=== PATIENT | female | born 1945 | race Caucasian/White ===

== ENCOUNTER 2017-02-26 18:32 | Inpatient (IN) | payer MEDICAID ==
[~2017-02-26] VITALS: Ht 162.6 cm; Wt 70.0 kg
[~2017-02-26 18:32] MED LIST: METO-448 PO
[2017-02-26] MEDS ORDERED: DILTIAZEM 25 MG INJ IV ONE (22:00)
[2017-02-26 22:10] LABS: ADD SCAN DIFF NO
[2017-02-26 22:11] LABS: BASOPHILS % 0.5 % (0.0-2.0); EOSINOPHILS # 0.2 10^3/ul (0.0-0.5); EOSINOPHILS % 2.9 % (0.0-7.0); HEMATOCRIT 40.9 % (37.0-47.0); HEMOGLOBIN 13.8 g/dl (12.0-16.0); LYMPHOCYTES # 2.2 10^3/ul (0.8-2.9); LYMPHOCYTES % 33.6 % (15.0-51.0); MEAN CORPUSCULAR HEMOGLOBIN 32.5 pg (29.0-33.0); MEAN CORPUSCULAR HGB CONC 33.7 g/dl (32.0-37.0); MEAN CORPUSCULAR VOLUME 96.2 fl (82.0-101.0); MEAN PLATELET VOLUME 10.2 fl (7.4-10.4); MONOCYTE # 0.8 10^3/ul (0.3-0.9); MONOCYTES % 12.2 % (0.0-11.0); NEUTROPHIL # 3.3 10^3/ul (1.6-7.5); NEUTROPHILS % 50.5 % (39.0-77.0); PLATELET COUNT 229 10^3/UL (140-415); RED BLOOD COUNT 4.25 10^6/ul (4.20-5.40); RED CELL DISTRIBUTION WIDTH 12.7 % (11.5-14.5); WHITE BLOOD COUNT 6.5 10^3/ul (4.8-10.8)
--- NOTE | 2017-02-26 22:15 | RADRPT ---
PROCEDURE: CT Brain without contrast. CLINICAL INDICATION: Dizziness TECHNIQUE: A CT of the brain was performed on a [employer] 64-slice CT scanner utilizing axial imaging from the skull base through the vertex without IV contrast. Multiplanar reformatted images were made. Images were reviewed on a PACS workstation. The CTDIvol is 42.48 mGy and the DLP is 811 .63 mGycm. One of the following 3 dose reduction techniques were used: Automated exposure control; adjustment of the mA and/or kV according to patient size; or use of iterative reconstruction technique. COMPARISON: None FINDINGS: There is no intracranial hemorrhage, mass effect, or midline shift. No extra-axial fluid collection is seen. The ventricles and sulci are age appropriate. Mild diffuse volume loss is present. Multi ple punctate foci of calcifications are present in the bilateral cerebral hemispheres ranging in siz e from 1 mm to 6 mm. These are compatible with prior cysticercosis. Decreased attenuation is prese nt in the bilateral subcortical white matter, centrum semiovale, and periventricular white matter. Mild vascular calcifications of the bilateral intracranial internal carotid arteries are present. The visualized scalp and calvarium are normal. The bilateral orbits are normal. The bilateral para nasal sinuses demonstrate air-fluid levels in the left greater than right maxillary sinuses and the bilateral ethmoid sinuses. The bilateral mastoid air cells and middle ear cavities are clear. IMPRESSION: 1. No evidence of acute intracranial hemorrhage, infarcts, or acute intracranial pathology. 2. 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 3. Mild chronic microvascular ischemic disease and diffuse volume loss. 4. Acute bilateral ethmoid and maxillary sinusitis. RPTAT: HDC .Michelle Hernández MD, MD Date Time Electronically viewed and signed by .Michelle Hernández MD, MD on 02/26/2017 22:14 .C/
[2017-02-26 22:34] LABS: ALANINE AMINOTRANSFERASE 32 IU/L (13-69); ALBUMIN 4.8 g/dl (3.3-4.9); ALKALINE PHOSPHATASE 103 IU/L (42-121); ANION GAP 16 (8-16); ASPARTATE AMINO TRANSFERASE 27 IU/L (15-46); BILIRUBIN,INDIRECT 0.1 mg/dl (0-1.1); BILIRUBIN,TOTAL 0.1 mg/dl (0.2-1.3); BLOOD UREA NITROGEN 20 mg/dl (7-20); CALCIUM 9.5 mg/dl (8.4-10.2); CARBON DIOXIDE 27 mmol/L (21-31); CHLORIDE 104 mmol/L (97-110); GLUCOSE 96 mg/dl (70-220); POTASSIUM 3.9 mmol/L (3.5-5.1); SODIUM 143 mmol/L (135-144); TOTAL PROTEIN 7.8 g/dl (6.1-8.1)
[2017-02-26 22:42] LABS: B-TYPE NATRIURETIC PEPTIDE 1220 PG/ML (0-125)
[2017-02-26 22:48] LABS: TROPONIN-I < 0.012 ng/ml (0.00-0.12)
--- NOTE | 2017-02-26 22:51 | RADRPT ---
PROCEDURE: Chest. CLINICAL INDICATION: Chest pain. TECHNIQUE: Single frontal view of the chest was obtained. COMPARISON: 11/25/2013. FINDINGS: The cardiac silhouette is magnified. The aortic arch is calcified. There are chronic increased int erstitial markings bilaterally. There is no focal consolidation, vascular congestion or pleural eff usion. There is no pneumothorax. IMPRESSION: Bilateral chronic increased interstitial markings without focal consolidation. Aortic atherosclerosis. .Michael Pa MD, Date Time Electronically viewed and signed by .Michael Pa MD, MD on 02/26/2017 22:51 .T/
[2017-02-26] MEDS ORDERED: GUAI-173 PO (22:54)
[2017-02-26] MEDS ORDERED: ALEN70TA30 PO (22:54)
[2017-02-26] MEDS ORDERED: ERGO500037 PO (22:54)
[2017-02-26] MEDS ORDERED: ACETAMINOPHEN 325 MG TAB PO PRN (23:00)
[2017-02-26] MEDS ORDERED: ONDANSETRON 4 MG INJ IV PRN (23:00)
--- NOTE | 2017-02-26 23:00 | ERA ---
ER Documentation Chief Complaint Date/Time DATE: 02/26/17 TIME: 22:57 Chief Complaint COUGH SINCE WEDNESDAY, SOB, WEDNESDAY HAD JULIETA UPPER EXTR NUMBNESS, DIZZINESS,VELASCO HPI This is a 71-year-old female presents to the emergency room for evaluation of cough, shortness of breath and palpitations. The patient states that she does have a history of atrial fibrillation and feels her heart rate is under control. She came to the ER today for evaluation. She is denying any aggravating or relieving factors. She states her cough is dry and denies any fevers associated with this. ROS All systems reviewed and are negative except as per history of present illness. Medications Home Meds Reported Medications Guaifenesin* (Tussin*) 100 Mg/5 Ml Syrup, 100 MG PO Q6 Y for COUGH, ML 02/26/17 Ergocalciferol (Vitamin D2) (VITAMIN D2) 50,000 Unit Capsule, 53361 UNIT PO, CAP 02/26/17 Alendronate Sodium* (Fosamax*) 70 Mg Tablet, 70 MG PO Q7D, #4 TAB 02/26/17 Metoprolol Tartrate* (Lopressor*) 25 Mg Tab, 25 MG PO BID, TAB 09/15/14 Allergies Allergies: Coded Allergies: Penicillins (Unverified Allergy, Unknown, 02/26/17) PMhx/Soc History of Surgery: Yes (C/S) Anesthesia Reaction: No Hx Neurological Disorder: No Hx Respiratory Disorders: No Hx Cardiac Disorders: Yes (AFIB) Hx Psychiatric Problems: No Hx Miscellaneous Medical Probl: No Hx Alcohol Use: No Hx Substance Use: No Hx Tobacco Use: No Smoking Status: Never smoker Physical Exam Vitals Vital Signs Date Time Temp Pulse Resp B/P Pulse Ox O2 Delivery O2 Flow Rate FiO2 02/26/17 19:12 98.0 90 18 157/103 96 Physical Exam INITIAL VITAL SIGNS: Reviewed by me GENERAL: The patient is well developed and appropriate for usual state of health in no apparent distress HEENT: Pupils equal, round, and reactive to light. EOMI. There is no scleral icterus. NECK: C-spine is soft and supple, there is no meningismus. There is no cervical lymphadenopathy. LUNGS: Clear to auscultation bilaterally. There are no rales, wheezes or rhonchi. HEART: Irregularly irregular rhythm, no murmurs, clicks, rubs or gallops. ABDOMEN: Soft, non-tender, non-distended. There are bowel sounds in all four quadrants. No rebound or guarding. EXTREMITIES: There is no peripheral cyanosis or edema. No focal swelling or erythema. NEUROLOGICAL: The patient moves all four extremities with 5/5 strength. Cranial nerves II - XII are intact. Normal gait. Alert and oriented SKIN: There is no apparent rash or petechiae. HEME/LYMPHATIC: There is no evidence of excessive bruising or lymphedema. PSYCHIATRIC: The patient does not appear anxious or depressed. Result Diagram: 02/26/17215402/26/172154 Results 24 hrs Laboratory Tests Test 02/26/17 21:55 White Blood Count 6.510^3/ul Red Blood Count 4.2510^6/ul Hemoglobin 13.8g/dl Hematocrit 40.9% Mean Corpuscular Volume 96.2fl Mean Corpuscular Hemoglobin 32.5pg Mean Corpuscular Hemoglobin Concent 33.7g/dl Red Cell Distribution Width 12.7% Platelet Count 02190^3/UL Mean Platelet Volume 10.2fl Neutrophils % 50.5% Lymphocytes % 33.6% Monocytes % 12.2% Eosinophils % 2.9% Basophils % 0.5% Nucleated Red Blood Cells % 0.0/100WBC Neutrophils # 3.310^3/ul Lymphocytes # 2.210^3/ul Monocytes # 0.810^3/ul Eosinophils # 0.210^3/ul Basophils # 0.010^3/ul Nucleated Red Blood Cells # 0.010^3/ul Sodium Level 143mmol/L Potassium Level 3.9mmol/L Chloride Level 104mmol/L Carbon Dioxide Level 27mmol/L Anion Gap 16 Blood Urea Nitrogen 20mg/dl Creatinine 1.00mg/dl Glucose Level 96mg/dl Calcium Level 9.5mg/dl Total Bilirubin 0.1mg/dl Direct Bilirubin 0.00mg/dl Indirect Bilirubin 0.1mg/dl Aspartate Amino Transf (AST/SGOT) 27IU/L Alanine Aminotransferase (ALT/SGPT) 32IU/L Alkaline Phosphatase 103IU/L Troponin I < 0.012ng/ml B-Type Natriuretic Peptide 1220PG/ML Total Protein 7.8g/dl Albumin 4.8g/dl Globulin 3.00g/dl Albumin/Globulin Ratio 1.60 Current Medications Medications (Trade) Dose Ordered Sig/Yahaira Route PRN Reason Start Time Stop Time Status Last Admin Dose Admin Diltiazem HCl (Cardizem Iv) 10 mg ONCE ONCE IV 02/26/17 22:00 02/26/17 22:01 DC 02/26/17 22:19 Procedures/MDM EKG: Rate/Rhythm: Atrial fibrillation with rapid ventricular response QRS, ST, T-waves: [No changes consistent w/ acute ischemia] Impression: [No evidence of ischemia or arrhythmia] Chest X-ray 1V Interpreted by me: Soft Tissue: No acute abnormalities Bones: No acute abnormalities Mediastinum/Cardiac Silhouette/Lungs: [No acute abnormalities] This 71-year-old female presents to the emergency room for evaluation of palpitations. When I evaluated this patient she had a heart rate of 144 bpm. The patient was in atrial fibrillation with rapid ventricular response. The patient did receive 10 mg of Cardizem IV. Her heart rate is 97 bpm. Lab work is within normal limits at this time. This patient will be placed in for admission to the telemetry floor under the care of Dr. Miranda. Cardiac Critical Care: Excluding all billable procedures Time: 35 minutes Treatments/Evaluations: Close monitoring for dangerous arrhythmia and cardiovascular collapse, while treating with advance cardiac medications and techniques. Departure Diagnosis: Primary Impression: Atrial fibrillation with RVR Condition: JESSICA Ruffin DO Feb 26, 2017 23:00
[2017-02-27] VITALS (14 sets, daily range): BP systolic 83–128; BP diastolic 41–88; PULSE 67–189; RESP 17–20; Ht 162.6 cm; Wt 70.0 kg
[2017-02-27] MEDS ORDERED: ACETAMINOPHEN 325 MG TAB PO PRN (01:00)
[2017-02-27] MEDS ORDERED: NACL 0.9% 3 ML SYG IV SCH (01:00)
[2017-02-27] MEDS ORDERED: ONDANSETRON 4 MG INJ IV PRN (01:00)
[2017-02-27] MEDS ORDERED: LORAZEPAM 2 MG INJ IV PRN (01:00)
[2017-02-27] MEDS ORDERED: DILTIAZEM 25 MG INJ IV ONE ×3 (02:00→05:00)
[2017-02-27] MEDS: SOD CHLORIDE 0.9% 1,000 ML IV SCH (02:44)
--- NOTE | 2017-02-27 03:22 | HP ---
Date/Time of Note Date/Time of Note DATE: 02/27/17 TIME: 03:06 Assessment/Plan VTE Prophylaxis VTE Prophylaxis Intervention: LMWH Lines/Catheters [facility] Urinary Cath still in place: No Assessment/Plan Chief Complaint/Hosp Course This is a 71 year female being admitted to the telemetry floor for: #1 Atrial fibrillation with RVR: While in the ED patient did have an elevated heart rate in the 140s she was given Cardizem 1. Patient was then given another Cardizem 1 upon my examination as her rate was rapid. Will obtain a TSH. And her magnesium. We will also check an echocardiogram as there are no echocardiograms within the last 6 months on record. Will consult cardiology. We will continue beta-juhi. Patient at this time currently has a chads vasc score: 2. Patient states that she has not been on any anticoagulation secondary to her varicose veins. Will defer further anticoagulation recommendations to cardiology. #2 elevated BNP: Patient has a BNP level approximately 1200. She does not appear to be in any overt heart failure, volume overload state. This could be secondary to her A. fib. Will consult cardiology. #3 headache: Patient stated that she did feel lightheaded pressure headache over the last day or so. CT of the head was done which was negative for any acute intracranial pathology. Patient states that her headache has now resolved. #4 cough. This likely could be viral in nature. Patient CT of the head did show acute sinusitis. However at the current time as patient does not have a fever and her cough is only been 5 days and non productive we will continue to monitor this. If symptoms worsen or the persist patient may require antibiotics per #5 osteoporosis: Continue home medications. #6 DVT and GI prophylaxis: Lovenox, Protonix Problems: HPI/ROS Admit Date/Time Admit Date/Time Feb 26, 2017 at 22:57 Hx of Present Illness Chief complaint: Cough 5 days, shortness of breath 2 days palpitation This is a 71-year-old female presents to the emergency room for evaluation of cough, shortness of breath and palpitations. The patient states that she does have a history of atrial fibrillation and feels her heart rate is under control. She came to the ER today for evaluation. She is denying any aggravating or relieving factors. She states her cough is dry and denies any fevers associated with this. She does state that her has been sick at home and he actually was being treated for pneumonia. She denies any chills or pleuritic pain. Of note on examination by the ED physician patient's heart rate was noted to be irregularly irregular at 140 bpm she was given Cardizem IV 1. This subsequently controlled her heart rate. Upon my examination patient's heart rate was elevated as well around the 120s-140s and was an irregularly irregular rhythm. She was given another Cardizem IV 10. Allergies: Penicillins Medications: See MELINDA AGUILERA Const: As per HPI Eyes : No pain discharge or redness or change in visual acuity ENT: No pain, sore throat, congestion, congestion, dysphagia or discharge Respiratory: As per HPI Cardiovascular: As per HPI GI : no change in appetite, abdominal pain, nausea, vomiting, diarrhea, constipation, or change in the color his stool Genitourinary: No dysuria, hematuria, flank pain , discharge or CVA tenderness Musculoskeletal: No joint pain, back pain, neck pain, restricted range of motion in neck or joints Skin: No rash, bruising or hives Neuro: No headache, dizziness, syncope, seizure, focal weakness Endocrine: No polyuria, polydipsia, temperature intolerance Psych: No hallucination, depression, anxiety or suicidal ideation PMH/Family/Social Past Medical History A. fib, osteoporosis Past Surgical History 1 Family History Significant Family History: lung disease Social History Alcohol Use: none Smoking Status: Never smoker Drug Use: none Exam/Review of Systems Vital Signs Vitals Vital Signs Date Time Temp Pulse Resp B/P Pulse Ox O2 Delivery O2 Flow Rate FiO2 02/27/17 02:37 79 02/27/17 02:10 99.0 20 114/70 97 Room Air Exam Exam General: Patient is well-developed well-nourished The patient is alert oriented -3 lying comfortably in bed. HEENT: Atraumatic, normocephalic. The pupils are equal, round and reactive. Extraocular motor are intact Neck: Supple with full range of motion. No rigidity or meningismus Chest: Nontender Lungs: Clear to auscultation bilaterally no crackles rales or wheezing Heart: Normal S1-S2, Regular rhythm and rate. No murmur, S3, or S4 Abdomen: Soft , nontender, nondistended , bowel sounds are present. No guarding no rebound tenderness , No masses or organomegaly. Extremities: Normal to inspection, no edema no cyanosis Neurologic: Normal mental status, speech normal, cranial nerves II through XII are intact, motor and sensory are intact, no focal weakness Additional Comments Telemetry: Patient A. fib with RVR. PROCEDURE: CT Brain without contrast. CLINICAL INDICATION: Dizziness TECHNIQUE: A CT of the brain was performed on a GE [employer] 64-slice CT scanner utilizing axial imaging from the skull base through the vertex without IV contrast. Multiplanar reformatted images were made. Images were reviewed on a PACS workstation. The CTDIvol is 42.48 mGy and the DLP is 811.63 mGycm. One of the following 3 dose reduction techniques were used: Automated exposure control; adjustment of the mA and/or kV according to patient size; or use of iterative reconstruction technique. COMPARISON: None FINDINGS: There is no intracranial hemorrhage, mass effect, or midline shift. No extra- axial fluid collection is seen. The ventricles and sulci are age appropriate. Mild diffuse volume loss is present. Multiple punctate foci of calcifications are present in the bilateral cerebral hemispheres ranging in size from 1 mm to 6 mm. These are compatible with prior cysticercosis. Decreased attenuation is present in the bilateral subcortical white matter, centrum semiovale, and periventricular white matter. Mild vascular calcifications of the bilateral intracranial internal carotid arteries are present. The visualized scalp and calvarium are normal. The bilateral orbits are normal. The bilateral paranasal sinuses demonstrate air-fluid levels in the left greater than right maxillary sinuses and the bilateral ethmoid sinuses. The bilateral mastoid air cells and middle ear cavities are clear. IMPRESSION: 1. No evidence of acute intracranial hemorrhage, infarcts, or acute intracranial pathology. 2. 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 3. Mild chronic microvascular ischemic disease and diffuse volume loss. 4. Acute bilateral ethmoid and maxillary sinusitis. RPTAT: HDC .Michelle Hernández MD, Date Time Electronically viewed and signed by .Michelle Hernández MD, on 02/26/2017 22: 14 PROCEDURE: Chest. CLINICAL INDICATION: Chest pain. TECHNIQUE: Single frontal view of the chest was obtained. COMPARISON: 11/25/2013. FINDINGS: The cardiac silhouette is magnified. The aortic arch is calcified. There are chronic increased interstitial markings bilaterally. There is no focal consolidation, vascular congestion or pleural effusion. There is no pneumothorax. IMPRESSION: Bilateral chronic increased interstitial markings without focal consolidation. Aortic atherosclerosis. .Michael Pa MD, MD Date Time Electronically viewed and signed by .Michael Pa MD, on 02/26/2017 22:51 Labs Result Diagram: 02/26/17215402/26/172154 Medications Medications Current Medications Sodium Chloride (NS) 1,000 ml @ 40 mls/hr Q24H IV Last administered on t 02:44; Admin Dose 40 MLS/HR; Start 02/27/17 at 00:58 Lorazepam (Ativan) 0.5 mg Q6H PRN IV ANXIETY; Start 02/27/17 at 01:00 Ondansetron HCl (Zofran Inj) 4 mg Q6H PRN IV NAUSEA AND/OR VOMITING; Start 02/27 at 01:00 Acetaminophen (Tylenol Tab) 650 mg Q6H PRN PO PAIN LEVEL 1-3 OR FEVER; Start at 01:00 Pantoprazole (Protonix Iv) 40 mg DAILY@06 IV ; Start 02/27/17 at 06:00 JAYSON LAND Feb 27, 2017 03:17
[2017-02-27] MEDS ORDERED: ENOXAPARIN 40 MG/0.4 ML SYG SC SCH ×2 (05:00→09:00)
[2017-02-27] MEDS: PANTOPRAZOLE 40 MG INJ IV SCH (05:09)
[2017-02-27 07:33] LABS: ADD SCAN DIFF NO
[2017-02-27 07:37] LABS: BASOPHILS % 0.5 % (0.0-2.0); EOSINOPHILS # 0.1 10^3/ul (0.0-0.5); EOSINOPHILS % 2.5 % (0.0-7.0); HEMATOCRIT 38.9 % (37.0-47.0); HEMOGLOBIN 13.1 g/dl (12.0-16.0); LYMPHOCYTES # 1.9 10^3/ul (0.8-2.9); LYMPHOCYTES % 34.8 % (15.0-51.0); MEAN CORPUSCULAR HGB CONC 33.7 g/dl (32.0-37.0); MEAN CORPUSCULAR VOLUME 94.9 fl (82.0-101.0); MONOCYTE # 0.6 10^3/ul (0.3-0.9); MONOCYTES % 11.2 % (0.0-11.0); NEUTROPHIL # 2.8 10^3/ul (1.6-7.5); NEUTROPHILS % 50.8 % (39.0-77.0); PLATELET COUNT 207 10^3/UL (140-415); RED CELL DISTRIBUTION WIDTH 12.9 % (11.5-14.5); WHITE BLOOD COUNT 5.5 10^3/ul (4.8-10.8)
[2017-02-27 07:56] LABS: CREATINE KINASE 62 IU/L (23-200)
[2017-02-27 07:59] LABS: ALBUMIN/GLOBULIN RATIO 1.73; BILIRUBIN,INDIRECT 0.4 mg/dl (0-1.1); BILIRUBIN,TOTAL 0.4 mg/dl (0.2-1.3); CALCIUM 8.9 mg/dl (8.4-10.2); CHOL/HDL RATIO 2.9 RATIO; CREATININE 0.61 mg/dl (0.44-1.00); POTASSIUM 3.9 mmol/L (3.5-5.1); TOTAL PROTEIN 6.3 g/dl (6.1-8.1)
[2017-02-27 08:28] LABS: THYROID STIMULATING HORMONE 3.69 MIU/L (0.465-4.680)
[2017-02-27 08:29] LABS: TROPONIN-I < 0.012 ng/ml (0.00-0.12)
[2017-02-27] MEDS ORDERED: METOPROLOL 25 MG TAB PO SCH (09:00)
--- NOTE | 2017-02-27 09:24 | RADRPT ---
Echocardiogram Report Patient Name: DENISE ENGLAND Gender: Female Date: 1945 Study Date: 27-Feb-2017 Hydroblaster: [facility] Location: [id number] Ref. Physician: JAYSON LAND Quality: Adequate Procedures: Transthoracic echocardiogram with complete 2D, M-Mode, and doppler examination. Indications: afib w/ rvr, elevated troponin. 2D/M Mode Doppler Measurement Value Normal Ranges Measurement Value Normal Ranges LVIDd 2D 4.5 3.5 - 5.6 cm AV Peak Karthik 1.5 m/sec LVIDs 2D 3.2 2.1 - 4.1 cm AV Peak PG 9.1 mmHg LVPWd 2D 1.1 0.6 - 1.1 cm AI Peak PG 69.4 mmHg IVSd 2D 1.1 0.6 - 1.1 cm AI Peak Karthik 4.2 m/sec AoR Diam 2D 2.9 2.0 - 3.7 cm AI PHT 583.9 msec EDV 2D 91.6 cm3 LVOT Peak Karthik 0.8 m/sec ESV 2D 34.2 cm3 LVOT Peak PG 2.7 mmHg LA Dimen 2D 3.5 2.3 - 4.0 cm MV E Peak Karthik 0.7 m/sec MV A Peak Karthik 0.6 m/sec MV E/A 1.1 MV Decel Time 208 msec MV Decel [place] 3 MV E/A 1.1 TR Peak Karthik 2.3 m/sec TR Peak PG 21.5 mmHg RVSP 25.0 mmHg Findings Left Ventricle: Normal left ventricular systolic function. Normal left ventricular cavity size. Left ventricular wall thickness upper limits of normal. Ejection fraction is visually estimated at 65 %. Tissue Doppler/Mitral Doppler indices are consistent with impaired relaxation (Stage I diastolic dysfunction). Right Ventricle: Normal right ventricular size. Normal right ventricular systolic function. Left Atrium: There is mild enlargement of left atrium. Right Atrium: The right atrium is normal in size. Mitral Valve: Mild mitral leaflet calcification. Trace mitral regurgitation. Aortic Valve: Normal appearance of the aortic valve. Mild aortic valve regurgitation. Tricuspid Valve: Normal appearance of the tricuspid valve. Estimated peak PA systolic pressure 25 mmHg. There is trace to mild tricuspid regurgitation. Pulmonic Valve: Pulmonic valve not well visualized. No evidence of pulmonic regurgitation. Pericardium: Normal pericardium with no significant pericardial effusion. Aorta: Normal aortic root. IVC: Normal size and normal respiratory collapse consistent with normal right atrial pressure. Conclusions Normal left ventricular systolic function. Normal left ventricular cavity size. Left ventricular wall thickness upper limits of normal. Ejection fraction is visually estimated at 65 %. Tissue Doppler/Mitral Doppler indices are consistent with impaired relaxation (Stage I diastolic dysfunction). Mild aortic valve regurgitation. Estimated peak PA systolic pressure 25 mmHg based on RA pressure of 3 mmHg. Electronically Signed By: Barron Steen 27-Feb-2017 09:23:48 -0700 Patient Name: DENISE ENGLAND Study Date: 27-Feb-2017 [id number]
[2017-02-27] MEDS ORDERED: FUROSEMIDE 20 MG INJ IV ONE (09:30)
--- NOTE | 2017-02-27 09:36 | CONS ---
Date/Time of Note Date/Time of Note DATE: 02/27/17 TIME: 09:27 Assessment/Plan Assessment/Plan Chief Complaint/Hosp Course Paroxysmal atrial fibrillation with RVR: Back in sinus now. Pt has not been on anticoagulation due to varicose vein bleeding on ASA. After explaining the risk of stroke (CHADSVASC 2), the pt is agreeable to retrying. Acute diastolic heart failure: EF preserved by echo, no valvular disease. Very mild, likely from RVR episode. -start Eliquis 5mg BID -switch MTP to diltiazem 120mg daily -lasix 20mg IV x1, do not anticipate nursing home diuretics Problems: Consultation Date/Type/Reason Admit Date/Time Feb 26, 2017 at 22:57 Date of Consultation: Feb 27, 2017 Type of Consultation: Cardiology Reason for Consultation Afib with RVR Referring Provider: JAYSON LAND of Present Illness 71 yo F with a h/o paroxysmal afib not on anticoagulation, who presented with palpitations and SOB and was found to have afib with RVR. The pt notes that over the past few days she has been having on and off palpitations but her symptoms started and persisted since am of admission yesterday. She takes MTP for her afib. She has not been on anticoagulation as apparently when she took ASA her varicose veins in her legs bled and she had ulcers that did not heal for months. Currently she is back in sinus and denies any SOB/palpitations. She has a pain under her left breast which is worse with inspiration. No substernal pain. 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 per HPI Past Medical History per HPI Social History Alcohol Use: none Smoking Status: Never smoker Drug Use: none Exam/Review of Systems Vital Signs Vitals Vital Signs Date Time Temp Pulse Resp B/P Pulse Ox O2 Delivery O2 Flow Rate FiO2 02/27/17 08:04 73 02/27/17 07:16 99.1 18 101/88 95 02/27/17 02:10 Room Air Intake and Output 02/26/17 02/26/17 02/27/17 15:00 23:00 07:00 Intake Total 40 ml Balance 40 ml Exam Constitutional: alert, oriented Psych: no complaints Head: atraumatic, normocephalic Neck: jvd (7cm) Respiratory: crackles/rales, No clear to auscultation (right base crackles ) Cardiovascular: regular rate and rhythm, No edema, No systolic murmur Gastrointestinal: non-tender, soft Extremities: normal pulses, other (varicose veins ) Neurological: nl mental status, nl speech Skin: No rash or lesions Results EKG: afib with RVR, nonspecific T changes Result Diagram: 02/27/17 0630 02/27/17 0630 Results 24 hrs Laboratory Tests Test 02/26/17 21:55 02/27/17 06:30 White Blood Count 6.5 5.5 Red Blood Count 4.25 4.10 L Hemoglobin 13.8 13.1 Hematocrit 40.9 38.9 Mean Corpuscular Volume 96.2 94.9 Mean Corpuscular Hemoglobin 32.5 32.0 Mean Corpuscular Hemoglobin Concent 33.7 33.7 Red Cell Distribution Width 12.7 12.9 Platelet Count 229 207 Mean Platelet Volume 10.2 10.0 Neutrophils % 50.5 50.8 Lymphocytes % 33.6 34.8 Monocytes % 12.2 H 11.2 H Eosinophils % 2.9 2.5 Basophils % 0.5 0.5 Nucleated Red Blood Cells % 0.0 0.0 Neutrophils # 3.3 2.8 Lymphocytes # 2.2 1.9 Monocytes # 0.8 0.6 Eosinophils # 0.2 0.1 Basophils # 0.0 0.0 Nucleated Red Blood Cells # 0.0 0.0 Sodium Level 143 144 Potassium Level 3.9 3.9 Chloride Level 104 109 Carbon Dioxide Level 27 25 Anion Gap 16 14 Blood Urea Nitrogen 20 15 Creatinine 1.00 0.61 Glucose Level 96 91 Calcium Level 9.5 8.9 Total Bilirubin 0.1 L 0.4 Direct Bilirubin 0.00 0.00 Indirect Bilirubin 0.1 0.4 Aspartate Amino Transf (AST/SGOT) 27 21 Alanine Aminotransferase (ALT/SGPT) 32 30 Alkaline Phosphatase 103 86 Troponin I < 0.012 < 0.012 B-Type Natriuretic Peptide 1220 H Total Protein 7.8 6.3 # Albumin 4.8 4.0 Globulin 3.00 2.30 Albumin/Globulin Ratio 1.60 1.73 Hemoglobin A1c 5.6 Magnesium Level 2.0 Creatine Kinase 62 Creatine Kinase Index 1.3 Creatinine Kinase MB (Mass) 0.80 Triglycerides Level 58 Cholesterol Level 139 LDL Cholesterol, Calculated 80 HDL Cholesterol 47 Cholesterol/HDL Ratio 2.9 Thyroid Stimulating Hormone (TSH) 3.690 Medications Medications Current Medications Sodium Chloride (NS) 1,000 ml @ 40 mls/hr Q24H IV Last administered on 02:44; Admin Dose 40 MLS/HR; Start 02/27/17 at 00:58 Lorazepam (Ativan) 0.5 mg Q6H PRN IV ANXIETY; Start 02/27/17 at 01:00 Ondansetron HCl (Zofran Inj) 4 mg Q6H PRN IV NAUSEA AND/OR VOMITING; Start 02/27 at 01:00 Acetaminophen (Tylenol Tab) 650 mg Q6H PRN PO PAIN LEVEL 1-3 OR FEVER; Start at 01:00 Pantoprazole (Protonix Iv) 40 mg DAILY@06 IV Last administered on 02/27/17 05: 09; Admin Dose 40 MG; Start 02/27/17 at 06:00 Alendronate Sodium (Fosamax) 70 mg Fr@0730 PO ; Start 03/05/17 at 07:30 Enoxaparin Sodium (Lovenox) 40 mg DAILY SC Last administered on 02/27/17 04:55 ; Admin Dose 40 MG; Start 02/27/17 at 05:00 Diltiazem HCl (Cardizem Cd) 120 mg DAILY PO ; Start 02/27/17 at 09:00 NEVAEH SAGASTUME Feb 27, 2017 09:36
[2017-02-27] MEDS: DILTIAZEM (CD) 120 MG CAP PO SCH (09:39)
[2017-02-27 13:28] LABS: CREATINE KINASE 59 IU/L (23-200)
[2017-02-27 13:53] LABS: TROPONIN-I < 0.012 ng/ml (0.00-0.12)
[2017-02-27] MEDS: APIXABAN 5 MG TABLET PO SCH (20:52)
[2017-02-28] VITALS (7 sets, daily range): BP systolic 121–132; BP diastolic 59–62; PULSE 62–70; RESP 17–18
[2017-02-28] MEDS: SOD CHLORIDE 0.9% 1,000 ML IV SCH ×2 (00:58→05:44)
[2017-02-28] MEDS: PANTOPRAZOLE 40 MG INJ IV SCH (05:45)
[2017-02-28] MEDS: DILTIAZEM (CD) 120 MG CAP PO SCH (08:40)
[2017-02-28] MEDS: APIXABAN 5 MG TABLET PO SCH (08:42)
[2017-02-28] MEDS ORDERED: AMOX1TAB10 PO (09:31)
--- NOTE | 2017-02-28 09:54 | CONS ---
Date/Time of Note Date/Time of Note DATE: 02/28/17 TIME: 09:53 Assessment/Plan Assessment/Plan Chief Complaint/Hosp Course Paroxysmal atrial fibrillation with RVR: Back in sinus now. Pt has not been on anticoagulation due to varicose vein bleeding on ASA. After explaining the risk of stroke (CHADSVASC 2), the pt is agreeable to retrying. Started on Eliquis Acute diastolic heart failure: EF preserved by echo, no valvular disease. Very mild, likely from RVR episode. Now resolved . -ok for d/c -Eliquis 5mg BID -diltiazem 120mg daily f/u outpt cardiology Problems: Consultation Date/Type/Reason Admit Date/Time Feb 26, 2017 at 22:57 Initial Consult Date 02/27/17 Type of Consultation: Cardiology Referring Provider: JAYSON LAND 24 HR Interval Summary Free Text/Dictation No further afib. Feels well. Would like to go home. Exam/Review of Systems Vital Signs Vitals Vital Signs Date Time Temp Pulse Resp B/P Pulse Ox O2 Delivery O2 Flow Rate FiO2 02/28/17 08:00 66 02/28/17 07:48 98.1 17 132/61 94 02/27/17 02:10 Room Air Intake and Output 02/27/17 02/27/17 02/28/17 15:00 23:00 07:00 Intake Total 120 ml 270 ml Balance 120 ml 270 ml Exam Constitutional: alert, oriented Neck: No jvd Respiratory: clear to auscultation Cardiovascular: regular rate and rhythm, No edema Gastrointestinal: soft, No non-tender Neurological: nl mental status, nl speech Results Result Diagram: 02/27/17 0630 02/27/17 0630 Results 24 hrs Laboratory Tests Test 02/27/17 12:20 Creatine Kinase 59 Creatine Kinase Index 0.8 Creatinine Kinase MB (Mass) 0.50 Troponin I < 0.012 Medications Medications Current Medications Sodium Chloride (NS) 1,000 ml @ 40 mls/hr Q24H IV Last administered on t 05:44; Admin Dose 40 MLS/HR; Start 02/27/17 at 00:58 Lorazepam (Ativan) 0.5 mg Q6H PRN IV ANXIETY; Start 02/27/17 at 01:00 Ondansetron HCl (Zofran Inj) 4 mg Q6H PRN IV NAUSEA AND/OR VOMITING; Start 02/27 at 01:00 Acetaminophen (Tylenol Tab) 650 mg Q6H PRN PO PAIN LEVEL 1-3 OR FEVER Last administered on 02/27/17 09:42; Admin Dose 650 MG; Start 02/27/17 at 01:00 Pantoprazole (Protonix Iv) 40 mg DAILY@06 IV Last administered on 02/28/17 05: 45; Admin Dose 40 MG; Start 02/27/17 at 06:00 Alendronate Sodium (Fosamax) 70 mg Fr@0730 PO ; Start 03/05/17 at 07:30 Diltiazem HCl (Cardizem Cd) 120 mg DAILY PO Last administered on 02/28/17 08:40 ; Admin Dose 120 MG; Start 02/27/17 at 09:00 Apixaban (Eliquis) 5 mg BID PO Last administered on 02/28/17 08:42; Admin Dose 5 MG; Start 02/27/17 at 21:00 NEVAEH SAGASTUME Feb 28, 2017 09:54
[2017-02-28] MEDS ORDERED: APIX5TAB PO (10:19)
[2017-02-28] MEDS ORDERED: DILT120C77 PO (10:19)
--- NOTE | 2017-02-28 10:20 | PDOCDIS ---
Discharge Instructions DIAGNOSIS Discharge Diagnosis: Atrial Fibrillation CONDITION Patient Condition: Stable HOME CARE INSTRUCTIONS: Diet Instructions: Low Fat /Cholesterol ACTIVITY: Activity Restrictions: Slowly Increase Activity Rest between Activity FOLLOW UP/APPOINTMENTS Appointments Followup with your primary doctor within the next 1-2 weeks. If you don't have one please let someone know, we can give you resources that may help you pick one. You may call Dr Minesh Bullard's office. he's accepting new patients Name, Degree: Minesh Bullard MD Specialty: Internal Medicine Comments: Office Address: [address] [place] [address] [place] [address] Office Office You may also call your insurance company to assign one to you. Review your medication list with your nurse before leaving and if you need new prescriptions please let your nurse know. I may have made changes to your home medications or given you new prescriptions , please let your primary doctor know as well. Stay compliant with your medications and report any side effects to your PCP or pharmacist. Return to the ER if you have any concerns and cannot reach your doctors or call your insurance company, they usually have a nurse that can help you. AIDAN OSORIO Feb 28, 2017 10:20
[2017-02-28] MEDS ORDERED: LEVO500T10 PO (10:55)
[2017-02-28] MEDS ORDERED: LACT1CAP57 PO (10:55)
--- NOTE | 2017-02-28 11:55 | DS ---
Date/Time of Note Date/Time of Note DATE: 02/28/17 TIME: 11:48 Discharge Summary Admission/Discharge Info Admit Date/Time Feb 26, 2017 at 22:57 Discharge Date/Time 02/28/17. . Final Diagnosis 1. Paroxysmal atrial fibrillation with rapid ventricular ventricular response now back in sinus with good rate control 2. Acute diastolic failure: Mild, compensated 3. Acute sinusitis . Patient Condition: Stable Consults Cardiology: Celsa . Hx of Present Illness Chief complaint: Cough 5 days, shortness of breath 2 days palpitation This is a 71-year-old female presents to the emergency room for evaluation of cough, shortness of breath and palpitations. The patient states that she does have a history of atrial fibrillation and feels her heart rate is under control. She came to the ER today for evaluation. She is denying any aggravating or relieving factors. She states her cough is dry and denies any fevers associated with this. She does state that her has been sick at home and he actually was being treated for pneumonia. She denies any chills or pleuritic pain. Of note on examination by the ED physician patient's heart rate was noted to be irregularly irregular at 140 bpm she was given Cardizem IV 1. This subsequently controlled her heart rate. Upon my examination patient's heart rate was elevated as well around the 120s-140s and was an irregularly irregular rhythm. She was given another Cardizem IV 10. Allergies: Penicillins Medications: See MAR . Hospital Course This 71-year-old female had presented with shortness of breath and cough as well as palpitations for the last 5 days and was admitted for atrial fibrillation with rapid ventricular response as well as a an acute diastolic heart failure. She was started on intravenous calcium channel blockers and eventually switched to oral calcium channel blockers with subsequent excellent rate control. As per protocol she was also started on anticoagulation therapy which she had been refusing in the past due to varicose veins but finally consented to and has been started on Eliquis 5 mg twice a day. Cardiology followed her while in-house and did not think she needed to be discharged on oral diuretics. 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 Because she was symptomatic she was given a 10 day course of Levaquin for her sinusitis as she was allergic to to penicillin and she is advised to follow-up with her primary care physician if symptoms persist or recurr. Noted that she was also ruled out for an acute coronary syndrome and she also underwent a 2D echocardiogram February 27, 2017 that showed normal left ventricular systolic function, EF of 65%, and estimated peak PA systolic pressure of 25. The patient has been evaluated in detail today, she is ambulant, her physical examination is benign, vital signs are stable and she has been cleared by both myself as well as the nascar driver for discharge and outpatient follow-up in stable condition. . Home Meds Active Scripts Lactobacillus Rhamnosus* (Culturelle*) 1 Each Cap.sprink, 1 CAP PO BID for 10 Days, CAP [facility] 02/28/17 Levofloxacin* (Levofloxacin*) 500 Mg Tablet, 500 MG PO DAILY for 10 Days, TAB [facility]. 02/28/17 Diltiazem Hcl* (Cardizem CD*) 120 Mg Cap.sr.24h, 120 MG PO DAILY for 30 Days, 2 Refills Prov:JOROSEMARYO M. 02/28/17 Apixaban* (Eliquis*) 5 Mg Tablet, 5 MG PO BID for 30 Days, TAB 2 Refills [facility]. 02/28/17 Reported Medications Guaifenesin* (Tussin*) 100 Mg/5 Ml Syrup, 100 MG PO Q6 Y for COUGH, ML 02/26/17 Ergocalciferol (Vitamin D2) (VITAMIN D2) 50,000 Unit Capsule, 15428 UNIT PO, CAP 02/26/17 Alendronate Sodium* (Fosamax*) 70 Mg Tablet, 70 MG PO Q7D, #4 TAB 02/26/17 Discontinued Reported Medications Metoprolol Tartrate* (Lopressor*) 25 Mg Tab, 25 MG PO BID, TAB 09/15/14 Follow-up Plan Patient is to follow-up with her primary care physician within 1-2 weeks. . Primary Care Provider Not On Staff Doctor Time spent on discharge: > 30 minutes Pending Labs Laboratory Tests Test 02/27/17 12:20 Creatine Kinase 59IU/L (23-200) Creatine Kinase Index 0.8 Creatinine Kinase MB (Mass) 0.50ng/ml (0.0-2.4) Troponin I < 0.012ng/ml (0.00-0.12) AIDAN OSORIO. Feb 28, 2017 11:55
[2017-03-05] MEDS ORDERED: ALENDRONATE 70 MG TAB PO SCH (07:30)
== END 2017-02-28 12:08 | disposition home or self-care (01) | DRG 293 ==
LOC: E/R 18:32 → MS4 22:57
PROVIDERS: ADMIT Family Medicine; ATTEND Family Medicine
DX: I50.31 Acute diastolic (congestive) heart failure (principal); I48.0 Paroxysmal atrial fibrillation; J01.90 Acute sinusitis, unspecified; R51 Headache; M81.0 Age-related osteoporosis without current pathological fracture; R05 Cough
CPT/HCPCS: 36415; 70450; 71010; 80053; 80061; 82550; 82553; 83036; 83735; 83880; 84443; 84484; 85025; 93005; 93306; 96374; 96376; J1940; C9113; J1650; J7030

== ENCOUNTER 2017-12-12 14:09 | Emergency (ER) | END 2017-12-12 16:57 | disposition home or self-care (01) ==

== ENCOUNTER 2018-03-14 09:34 | Inpatient (IN) | END 2018-03-15 12:55 | disposition home or self-care (01) | DRG 440 ==

== ENCOUNTER 2018-06-27 15:49 | Emergency (ER) | END 2018-06-27 22:10 | disposition home or self-care (01) ==

== ENCOUNTER 2018-11-14 20:12 | Observation (INO) | payer MEDICAID ==
[~2018-11-14] VITALS: Ht 157.5 cm; Wt 66.5 kg
[~2018-11-14 20:12] MED LIST changes: +CLOP75TA27 PO; +DILT120C62 PO; +ERGO500013 PO; -METO-448 PO
[2018-11-15] MEDS ORDERED: OMEG1CAP90 PO (02:36)
[2018-11-15] MEDS ORDERED: UBID50TA PO (02:36)
[2018-11-15] MEDS ORDERED: CYAN100T PO (02:36)
[2018-11-15] MEDS ORDERED: DEXTROSE 5%-0.45% NACL 1,000 ML IV SCH (03:58)
[2018-11-15] MEDS ORDERED: DOCUSATE SODIUM 100 MG CAP PO PRN (04:00)
[2018-11-15] MEDS ORDERED: ONDANSETRON 4 MG INJ IV PRN (04:00)
[2018-11-15] MEDS ORDERED: NITROGLYCERIN (SL) 0.4 MG TAB SL PRN (04:00)
[2018-11-15] MEDS ORDERED: HYDROCODONE/APAP (5/325) TAB PO PRN (04:00)
[2018-11-15] MEDS ORDERED: ACETAMINOPHEN 325 MG TAB PO PRN (04:00)
[2018-11-15] MEDS ORDERED: MAGNESIUM HYDROXIDE 30ML CUP PO PRN (04:00)
[2018-11-15] MEDS ORDERED: morphine 2 MG INJ IV PRN (04:00)
[2018-11-15] MEDS ORDERED: NACL 0.9% 3 ML SYG IV SCH (04:00)
--- NOTE | 2018-11-15 04:48 | HP ---
Date/Time of Note Date/Time of Note DATE: 11/15/18 TIME: 04:38 Assessment/Plan VTE Prophylaxis SCD applied (from Nsg): Yes Pharmacological prophylaxis: other Lines/Catheters IV Catheter Type (from Nrsg): Saline Lock Assessment/Plan Assessment/Plan 1. Acute chest pain, rule out ACS - atypical in nature - Trop negative x1 and will trend - EKG negative for acute ST changes - ECHO ordered - Nitro, O2, and pain control as needed - will check A1c and TSH - Consider cardiology consultation if indicated 2. h/o atrial fibrillation - in sinus rhythm - continue Cardizem 3. Varicose veins - stable 4. Disposition - Admit to telemetry for ACS workup Result Diagram: 11/15/18 0212 11/15/18 0212 Results 24hrs Laboratory Tests Test 11/15/18 02:12 White Blood Count 4.1 L Red Blood Count 3.88 L Hemoglobin 12.7 Hematocrit 37.8 Mean Corpuscular Volume 97.4 Mean Corpuscular Hemoglobin 32.7 Mean Corpuscular Hemoglobin Concent 33.6 Red Cell Distribution Width 12.6 Platelet Count 220 Mean Platelet Volume 9.4 Immature Granulocytes % 0.200 Neutrophils % 41.6 Lymphocytes % 44.0 Monocytes % 11.8 H Eosinophils % 2.2 Basophils % 0.2 Nucleated Red Blood Cells % 0.0 Immature Granulocytes # 0.010 Neutrophils # 1.7 Lymphocytes # 1.8 Monocytes # 0.5 Eosinophils # 0.1 Basophils # 0.0 Nucleated Red Blood Cells # 0.0 Sodium Level 140 Potassium Level 4.6 Chloride Level 104 Carbon Dioxide Level 32 H Anion Gap 4 L Blood Urea Nitrogen 23 H Creatinine 0.70 Est Glomerular Filtrat Rate mL/min Glucose Level 109 Calcium Level 9.7 Total Bilirubin 0.2 Direct Bilirubin 0.00 Indirect Bilirubin 0.2 Aspartate Amino Transf (AST/SGOT) 24 Alanine Aminotransferase (ALT/SGPT) 22 Alkaline Phosphatase 133 H Troponin I < 0.012 B-Type Natriuretic Peptide 368 H Total Protein 7.2 Albumin 4.2 Globulin 3.00 Albumin/Globulin Ratio 1.40 HPI/ROS Admit Date/Time Admit Date/Time 11/15/18 0400 Hx of Present Illness 73 yo F with PMH atrial fibrillation and varicose veins presents to ED with h/o intermitted chest pain since Wednesday. Patient states she has been experiencing left sided chest discomfort as if she was being pricked by a pin that occurs at any time, has a few episodes daily with last episode Wednesday, 11/14. Patient admits to associated left shoulder pain but denies any shortness of breath, nausea, vomiting, dizziness, palpitations, abdominal pain, or urinary issues. Denies any cardiac history in the past besides atrial fibrillation which daughter says she takes Cardizem and Plavix for. She is unable to tolerate asp irin and unsure why not on Eliquis or Xarelto. ROS All 12 systems reviewed and pertinent positives as per HPI. All others negative. Constitutional: No chills, No fatigue, No nausea Eyes: No discharge ENT: No congestion Respiratory: No cough, No shortness of breath, No sputum, No wheezing Cardiovascular: chest pain; No lightheadedness, No palpitations Gastrointestinal: No pain, No constipation, No diarrhea, No nausea, No vomiting Genitourinary: no complaints Musculoskeletal: bone/joint pain (left shoulder pain) Skin: no complaints Neurologic: No confusion, No dizziness, No focal-weakness, No headache Endocrine: no complaints Lymphatic: no complaints Psychological: nl mood/affect Immunologic: no complaints PMH/Family/Social Past Medical History Medical History: other (atrial fibrillation, varicose veins) Medications Current Medications Clopidogrel Bisulfate (plaVIX) 75 mg DAILY PO ; Start 11/15/18 at 09:00 Cyanocobalamin (Vitamin B12) 100 mcg DAILY PO ; Start 11/15/18 at 09:00 Diltiazem HCl (Cardizem Cd) 120 mg DAILY PO ; Start 11/15/18 at 09:00 Miscellaneous Information 50 mg DAILY PO ; Start 11/15/18 at 09:00; Status UNV Dextrose/Sodium Chloride 1,000 ml @ 75 mls/hr [id number] IV ; Start 11/15/18 at 03:58 IV Flush (NS 3 ml) 3 ml PER PROTOCOL IV ; Start 11/15/18 at 04:00 Ondansetron HCl (Zofran Inj) 4 mg Q6H PRN IV NAUSEA/VOMITING; Start 11/15/18 at 04:00 Nitroglycerin (Nitroglycerin (Sl Tab) 0.4 Mg) 1 tab Q5M PRN SL .CHEST PAIN; Start 11/15/18 at 04:00 Acetaminophen (Tylenol Tab) 650 mg Q6H PRN PO .PAIN 1-3 OR TEMP; Start 11/15/18 at 04:00 Acetaminophen/ Hydrocodone Bitart (Draper (5/325)) 1 tab Q6H PRN PO .PAIN 4-6; Start 11/15/18 at 04:00 Morphine Sulfate (morphine) 2 mg Q4H PRN IV .PAIN 7-10; Start 11/15/18 at 04:00 Docusate Sodium (Colace) 100 mg Q12H PRN PO .CONSTIPATION; Start 11/15/18 at 04:00 Magnesium Hydroxide (Milk Of Mag) 30 ml DAILY PRN PO .CONSTIPATION; Start 11/15/18 at 04:00 Pantoprazole (Protonix Iv) 40 mg DAILY@06 IV ; Start 11/15/18 at 06:00 Enoxaparin Sodium (Lovenox) 40 mg DAILY SC ; Start 11/15/18 at 09:00 Coded Allergies: Penicillins (Unverified Allergy, Unknown, 06/27/18) Past Surgical History Past Surgical Hx: no surgical history Family History Significant Family History: no pertinent family hx Social History Alcohol Use: none Smoking Status: Never smoker Drug Use: none Exam/Review of Systems Vital Signs Vitals Vital Signs Date Temp Pulse Resp B/P (MAP) Pulse Ox O2 O2 Flow FiO2 Time Delivery Rate 11/15/18 97.8 69 21 143/70 100 Room Air 03:53 (94) Exam Exam General: Patient is a pleasant female, currently lying in bed in no acute distress HEENT: Atraumatic, normocephalic. The pupils are equal, round and reactive. Extraocular motor are intact Neck: Supple with full range of motion. No rigidity or meningismus Chest: Nontender Lungs: Clear to auscultation bilaterally no crackles rales or wheezing Heart: Normal S1-S2, Regular rhythm and rate. no murmurs Abdomen: Soft , nontender, nondistended , bowel sounds are present. No guarding no rebound tenderness , No masses or organomegaly. No costovertebral temporal angle mass Extremities: Normal to inspection, no edema no cyanosis Neurologic: Normal mental status, speech normal, cranial nerves II through XII are intact, motor and sensory are intact, Additional Comments Home medications reviewed PROCEDURE: DX Chest 1 View CLINICAL INDICATION: Chest pain. TECHNIQUE: AP Portable chest. COMPARISON: 11/25/2013 FINDINGS: Normal cardiac and mediastinal configuration. Aortic calcified plaque absent. No CHF or hilar enlargement. Lungs are clear. IMPRESSION: No acute disease. RPTAT: HLRS Physician Drew Date Time Electronically viewed and signed by Manan Gabriel, Physician on 11/15/2018 02:24 FAISAL JAIN MD Nov 15, 2018 04:48
[2018-11-15] MEDS ORDERED: PANTOPRAZOLE 40 MG INJ IV SCH (06:00)
[2018-11-15 08:45] VITALS: PULSE 71
[2018-11-15] MEDS ORDERED: DILTIAZEM (CD) 120 MG CAP PO SCH (09:00)
[2018-11-15] MEDS ORDERED: CYANOCOBALAMIN 100 MCG TAB PO SCH (09:00)
[2018-11-15] MEDS ORDERED: CLOPIDOGREL 75 MG TAB PO SCH (09:00)
[2018-11-15] MEDS ORDERED: NON-FORMULARY/PATIENT OWN MED (Ubidecarenone (Coq10) 50 MG) PO SCH (09:00)
[2018-11-15] MEDS ORDERED: ENOXAPARIN 40 MG/0.4 ML SYG SC SCH (09:00)
[2018-11-15 09:08] VITALS: Ht 157.5 cm; Wt 66.5 kg
[2018-11-15 09:45] VITALS: BP 133/65; PULSE 68; RESP 18
[2018-11-15 12:01] VITALS: PULSE 64
--- NOTE | 2018-11-15 12:03 | RADRPT ---
Echocardiogram Report Patient Name: DENISE WEINBERGPatient ID: [id number] : 1945 (73y 4m)Study Date: 11/15/2018 9:05:11 AM Gender: FAccession #: [id number] Tech: [facility] Location: 6-A Ref.Physician: FAISAL JAIN Height(Cm): BSA: Weight(Kg): Quality: AdequateAccount #: Procedures: Echocardiographic Report: Transthoracic echocardiogram with complete 2D, M-Mode, and doppler examination. Indications: Evaluate Left Ventricular function. Measurements: 2D/M Mode Doppler Measurement Value Normal Range Measurement Value Normal Range LVIDd 2D 5.2 [ 3.8 - 5.2 ] cm AV Peak Karthik 1.5 [ 100.0 - 170.0 ] cm/sec LVIDs 2D 3.2 [ 2.2 - 3.5 ] cm AV Peak PG 10.0 [ 2.0 - 9.0 ] mmHg LVPWd 2D 0.8 [ 0.6 - 0.9 ] cm AI Peak PG 84.0 mmHg IVSd 2D 0.8 [ 0.6 - 0.9 ] cm AI Peak Karthik 4.6 cm/sec AoR Diam 2D 2.7 [ 2.3 - 3.1 ] cm AI PHT 507.0 msec EDV 2D 128.0 [ 46.0 - 106.0 ] ml LVOT Peak Karthik 1.0 [ 70.0 - 110.0 ] cm/sec ESV 2D 42.2 [ 14.0 - 42.0 ] ml LVOT Peak PG 4.0 [ 2.0 - 6.0 ] mmHg EF 2D 67.0 [ 54.0 - 74.0 ] percent MV E Peak Karthik 0.8 [ 60.0 - 130.0 ] cm/sec LA Dimen 2D 3.6 [ 2.7 - 3.8 ] cm MV A Peak Karthik 0.7 [ 100.0 - 120.0 ] cm/sec MV E/A 1.2 [ 0.8 - 1.5 ] ratio MV Decel Time 190 [ 104 - 258 ] msec Lat E` Karthik 0.1 [ 10.0 - 15.0 ] cm/sec Lateral E/E` 7.3 [ 1.0 - 2.0 ] ratio Med E` Karthik 0.1 cm/sec MV E/A 1.2 [ 0.8 - 1.5 ] ratio TR Peak Karthik 3.0 [ 100.0 - 280.0 ] cm/sec TR Peak PG 36.0 mmHg RVSP 46.0 [ 10.0 - 36.0 ] mmHg Findings: Left Ventricle: Lower limits of normal systolic function. Normal left ventricular cavity size. Normal left ventricular wall thickness. Ejection fraction is visually estimated at 50 %. Tissue Doppler/Mitral Doppler indices are consistent with impaired relaxation (Stage I diastolic dysfunction). Right Ventricle: Normal right ventricular size. Normal right ventricular systolic function. Left Atrium: The left atrium is normal in size. Right Atrium: The right atrium is normal in size. Mitral Valve: Mild mitral leaflet calcification. Mild mitral annular calcification. Mild to moderate mitral valve regurgitation. Aortic Valve: Aortic sclerosis without significant stenosis. Aortic cusps appear mildly calcified. Mild to moderate aortic valve regurgitation. Tricuspid Valve: Normal appearance of the tricuspid valve. Estimated peak PA systolic pressure 46 mmHg. There is mild to moderate tricuspid regurgitation. Pulmonic Valve: Pulmonic valve not well visualized. Pericardium: Normal pericardium with no significant pericardial effusion. Aorta: Normal aortic root. IVC: Normal size and normal respiratory collapse consistent with normal right atrial pressure. Conclusions: Lower limits of normal systolic function. Normal left ventricular cavity size. Normal left ventricular wall thickness. Ejection fraction is visually estimated at 50 %. Tissue Doppler/Mitral Doppler indices are consistent with impaired relaxation (Stage I diastolic dysfunction). Aortic sclerosis without significant stenosis. Aortic cusps appear mildly calcified. Mild to moderate aortic valve regurgitation. Normal appearance of the tricuspid valve. Estimated peak PA systolic pressure 46 mmHg. There is mild to moderate tricuspid regurgitation. Mild mitral leaflet calcification. Mild mitral annular calcification. Mild to moderate mitral valve regurgitation. Electronically Signed By: Shane Hudson 2018-11-15 12:02:08 PST
[2018-11-15 12:19] VITALS: BP_SYST 116; BP_SYST 127; BP_DIAS 71; PULSE 63; PULSE 73; RESP 18
--- NOTE | 2018-11-15 13:09 | QN ---
Documentation Comment Overall, patient with no further symptoms. She is chest pain-free. She does not admit to any numbness, dizziness, nausea, vomiting, abdominal pain or other distress. She already has 2 sets of negative troponin and her EKG is not consistent with any acute ischemia. She wants to be discharged home. At this time, I recommend adding a T4 level to a.m. labs as her TSH is mildly high, obtain a vitamin D and B12 level and patient may be discharged later today with PCP follow-up. Case discussed with Dr.Abe PENDLETON,CHEPE Foote NP Nov 15, 2018 13:08
--- NOTE | 2018-11-15 14:42 | PDOCDIS ---
Discharge Instructions CONDITION [id number] Patient Condition: [id number] Stable HOME CARE INSTRUCTIONS: [id number] Diet Instructions: [id number] Regular FOLLOW UP/APPOINTMENTS Follow-up Plan Follow-up with primary care physician in 1 week-you need to repeat your TSH, T4 (blood work for thyroid )level in 4 weeks. CHEPE PENDLETON NP Nov 15, 2018 14:42
--- NOTE | 2018-11-15 14:48 | DS ---
Date/Time of Note Date/Time of Note DATE: 11/15/18 TIME: 14:46 Discharge Summary Admission/Discharge Info Admit Date/Time Nov 15, 2018 at 03:37 Discharge Date/Time Discharge Diagnosis 1. Chest pain, likely musculoskeletal. Resolved 2. Chronic paroxysmal atrial fibrillation, stable. 3. Hypertension 4. Vitamin D/B12 deficiency 5. Subclinical hypothyroidism Patient Condition: Stable Procedures 11/15/2018. 2D echocardiogram Conclusions: Lower limits of normal systolic function. Normal left ventricular cavity size. Normal left ventricular wall thickness. Ejection fraction is visually estimated at 50 %. Tissue Doppler/Mitral Doppler indices are consistent with impaired relaxation (Stage I diastolic dysfunction). Aortic sclerosis without significant stenosis. Aortic cusps appear mildly calcified. Mild to moderate aortic valve regurgitation. Normal appearance of the tricuspid valve. Estimated peak PA systolic pressure 46 mmHg. There is mild to moderate tricuspid regurgitation. Mild mitral leaflet calcification. Mild mitral annular calcification. Mild to moderate mitral valve regurgitation. Electronically Signed By: Shane Hudson 2018-11-15 12:02:08 [facility] Hospital Course 23-year-old female with a history of atrial fibrillation, hypertension, admitted with chest pain. Patient was ruled out for acute coronary syndrome with 3 sets of negative troponin, repeat EKGs. Patient symptoms resolved. 2D echocardiogram with diastolic dysfunction with preserved ejection fraction. Patient also had mildly elevated PA pressure 46 mmHg. Otherwise unremarkable 2D echocardiogram. Most likely etiology of chest pain is likely musculoskeletal. Patient is tolerating diet and activities well. She was also noted with subclinical hypothyroidism for which repeat blood work was recommended in 4 weeks. At this time, patient is very eager to be discharged home as she is feeling back to her baseline with no further distress. Patient to follow-up with her primary care physician in 1 week. [facility] 60 m spent on coordinating the discharge on this patient. Patient was seen in collaboration with [facility] ([facility]s Reported Medications Eighty Four-3 Fatty Acids/Fish Oil (Eighty Four 3 1,000 mg Softgel) 1 Each Capsule, 1 EACH PO, CAP 11/15/18 Ubidecarenone (COQ10) 50 Mg Tab.chew, 50 MG PO DAILY, TAB.CHEW 11/15/18 Cyanocobalamin* (Vitamin B12*) 100 Mcg Tab, 100 MCG PO DAILY, TAB 11/15/18 Ergocalciferol (Vitamin D2) (VITAMIN D2) 50,000 Unit Capsule, 24882 UNIT PO Q SUN, CAP 06/27/18 Clopidogrel Bisulfate (Clopidogrel) 75 Mg Tablet, 75 MG PO DAILY, #30 TAB 03/13/18 Diltiazem Hcl* (Cartia XT*) 120 Mg Cap.sr.24h, 120 MG PO DAILY, #30 CAP 03/20/17 Follow-up Plan Follow-up with primary care physician in 1 week-you need to repeat your TSH, T4 (blood work for thyroid )level in 4 weeks. Primary Care Provider [facility] Pending Labs Laboratory Tests Test 11/15/18 02:12 11/15/18 05:10 11/15/18 07:42 11/15/18 14:02 White Blood 4.1 3.5 Count 10^3/ul (4.8-10 10^3/ul (4.8-1 .8) 0.8) Red Blood 3.88 3.70 Count 10^6/ul (4.20-5 10^6/ul (4.20- .40) 5.40) Hemoglobin 12.7 12.2 g/dl (12.0-16.0 g/dl (12.0-16. ) 0) Hematocrit 37.8 36.0 % (37.0-47.0) % (37.0-47.0) Mean 97.4 97.3 Corpuscular fl (82.0-101.0) fl (82.0-101.0 Volume ) Mean 32.7 33.0 Corpuscular pg (29.0-33.0) pg (29.0-33.0) Hemoglobin Mean 33.6 33.9 Corpuscular g/dl (32.0-37.0 g/dl (32.0-37. Hemoglobin Conc ) 0) ent Red Cell 12.6 12.5 Distribution % (11.5-14.5) % (11.5-14.5) Width Platelet Count 220 207 10^3/UL (140-41 10^3/UL (140-4 5) 15) Mean Platelet 9.4 9.4 Volume fl (7.4-10.4) fl (7.4-10.4) Immature 0.200 0.000 Granulocytes % % (0.001-0.429) % (0.001-0.429 ) Neutrophils % 41.6 41.4 % (39.0-77.0) % (39.0-77.0) Lymphocytes % 44.0 46.8 % (15.0-51.0) % (15.0-51.0) Monocytes % 11.8 9.5 % (0.0-11.0) % (0.0-11.0) Eosinophils % 2.2 % (0.0-7.0) 2.0 % (0.0-7.0) Basophils % 0.2 % (0.0-2.0) 0.3 % (0.0-2.0) Nucleated Red 0.0 0.0 Blood Cells % /100WBC (0.0-0. /100WBC (0.0-0 0) .0) Immature 0.010 0.000 Granulocytes # 10^3/ul (0.0-0. 10^3/ul (0.0-0 031) .031) Neutrophils # 1.7 1.4 10^3/ul (1.6-7. 10^3/ul (1.6-7 5) .5) Lymphocytes # 1.8 1.6 10^3/ul (0.8-2. 10^3/ul (0.8-2 9) .9) Monocytes # 0.5 0.3 10^3/ul (0.3-0. 10^3/ul (0.3-0 9) .9) Eosinophils # 0.1 0.1 10^3/ul (0.0-0. 10^3/ul (0.0-0 5) .5) Basophils # 0.0 0.0 10^3/ul (0.0-0. 10^3/ul (0.0-0 1) .1) Nucleated Red 0.0 0.0 Blood Cells # 10^3/ul (0.0-0. 10^3/ul (0.0-0 0) .0) Sodium Level 140 143 mmol/L (135-144 mmol/L (135-14 ) 4) Potassium 4.6 4.8 Level mmol/L (3.5-5.1 mmol/L (3.5-5. ) 1) Chloride Level 104 102 mmol/L (97-110) mmol/L (97-110 ) Carbon Dioxide 32 30 Level mmol/L (21-31) mmol/L (21-31) Anion Gap 4 (5-13) 11 (5-13) Blood Urea 23 mg/dl (7-20) 20 Nitrogen mg/dl (7-20) Creatinine 0.70 0.67 mg/dl (0.44-1.0 mg/dl (0.44-1. 0) 00) Est Glomerular mL/min (>60) mL/min (>60) Filtrat Rate mL/min Glucose Level 109 97 mg/dl (70-220) mg/dl (70-220) Calcium Level 9.7 9.4 mg/dl (8.4-10.2 mg/dl (8.4-10. ) 2) Total 0.2 Bilirubin mg/dl (0.2-1.3) Direct 0.00 Bilirubin mg/dl (0.00-0.2 0) Indirect 0.2 Bilirubin mg/dl (0-1.1) Aspartate Amino 24 IU/L (15-46) Transf (AST/SGO T) Alanine 22 IU/L (13-69) Aminotransferas e (ALT/SGPT) Alkaline 133 Phosphatase IU/L (42-121) Troponin I < 0.012 < 0.012 < 0.012 ng/ml (0.000-0. ng/ml (0.000-0 ng/ml (0.000-0 120) .120) .120) B-Type 368 Natriuretic PG/ML (0-125) Peptide Total Protein 7.2 g/dl (6.1-8.1) Albumin 4.2 g/dl (3.3-4.9) Globulin 3.00 g/dl (1.3-3.2) Albumin/Globuli 1.40 n Ratio Vitamin D 47.7 1,25-Dihydroxy ng/ml (30-100) Free Thyroxine 1.15 ng/dl (0.78-2.4 4) Hemoglobin A1c 5.3 % (0-5.9) Magnesium 2.2 Level mg/dl (1.7-2.5 ) Triglycerides 43 Level mg/dl (0-149) Cholesterol 145 Level mg/dl (100-200 ) LDL 76 mg/dl Cholesterol, Calculated HDL 60 Cholesterol mg/dl (33-92) Cholesterol/HDL 2.4 RATIO Ratio Thyroid 5.030 Stimulating MIU/L (0.465-4 Hormone (TSH) .680) Creatine 33 34 Kinase IU/L (23-200) IU/L (23-200) Creatine Kinase 1.1 Pending Index Creatinine 0.37 Pending Kinase MB ng/ml (0.0-2.4 (Mass) ) CHEPE PENDLETON NP Nov 15, 2018 14:47
[2018-11-15 15:45] VITALS: BP 131/70; PULSE 73; RESP 18
== END 2018-11-15 16:25 | disposition home or self-care (01) ==
LOC: E/R 20:12 → 6WM 11-15 03:37
PROVIDERS: ADMIT Internal Medicine; ATTEND Internal Medicine
DX: R07.9 Chest pain, unspecified (principal); I83.90 Asymptomatic varicose veins of unspecified lower extremity; I48.2 Chronic atrial fibrillation; I10 Essential (primary) hypertension; E03.9 Hypothyroidism, unspecified
CPT/HCPCS: 71045; 80048; 80053; 80061; 82550; 82553; 82607; 82652; 83036; 83735; 83880; 84439; 84443; 84484; 85025; 93005; 93306; C9113; J1650; J7042; Z7500; Z7610; G0378; J3420

== ENCOUNTER 2019-02-12 01:48 | Inpatient (IN) | payer MEDICAID ==
[2019-02-12] VITALS (8 sets, daily range): BP systolic 108–121; BP diastolic 59–79; PULSE 74–93; RESP 17–18; Ht 162.6 cm; Wt 66.6 kg
[~2019-02-12] VITALS: Ht 162.6 cm; Wt 66.6 kg
[~2019-02-12 01:48] MED LIST changes: +CYAN100T PO; +OMEG1CAP90 PO; +UBID50TA PO
[2019-02-12] MEDS ORDERED: ASPIRIN 325 MG TAB PO STA (02:11)
[2019-02-12] MEDS ORDERED: ENOXAPARIN 80 MG/0.8 ML SYG SC STA (02:11)
[2019-02-12] MEDS ORDERED: DILTIAZEM-D5W 125MG/125ML DRIP 125 ML IV SCH (02:30)
[2019-02-12] MEDS ORDERED: DILTIAZEM 25 MG INJ IV ONE (02:30)
--- NOTE | 2019-02-12 04:20 | ERD ---
ER Documentation Chief Complaint Chief Complaint states palpitations/weakness since 12 midnight HPI This is a 73-year-old female who said at midnight she developed some palpitations and heart racing consistent with A. fib. Patient waited to see if it would go away but it did not. She is on Xarelto every night and takes Cardizem for A. fib. She has had A. fib for about 6 years she states. She denies any chest pain shortness of breath tonight. No syncope ROS All systems reviewed and are negative except as per history of present illness. Medications Home Meds Reported Medications Emmalena-3 Fatty Acids/Fish Oil (Emmalena 3 1,000 mg Softgel) 1 Each Capsule, 1 EACH PO, CAP 11/15/18 Ubidecarenone (COQ10) 50 Mg Tab.chew, 50 MG PO DAILY, TAB.CHEW 11/15/18 Cyanocobalamin* (Vitamin B12*) 100 Mcg Tab, 100 MCG PO DAILY, TAB 11/15/18 Ergocalciferol (Vitamin D2) (VITAMIN D2) 50,000 Unit Capsule, 59995 UNIT PO Q SUN, CAP 06/27/18 Clopidogrel Bisulfate (Clopidogrel) 75 Mg Tablet, 75 MG PO DAILY, #30 TAB 03/13/18 Diltiazem Hcl* (Cartia XT*) 120 Mg Cap.sr.24h, 120 MG PO DAILY, #30 CAP 03/20/17 Allergies Allergies: Coded Allergies: Penicillins (Unverified Allergy, Unknown, 06/27/18) PMhx/Soc History of Surgery: Yes () Anesthesia Reaction: No Hx Neurological Disorder: No Hx Respiratory Disorders: No Hx Cardiac Disorders: Yes (HTN, A-FIB) Hx Psychiatric Problems: No Hx Miscellaneous Medical Probl: No Hx Alcohol Use: No Hx Substance Use: No Hx Tobacco Use: No Smoking Status: Never smoker FmHx Family History: No coronary disease Physical Exam Vitals Vital Signs Date Temp Pulse Resp B/P (MAP) Pulse Ox O2 O2 Flow FiO2 Time Delivery Rate 02/12/19 97.1 123 18 150/97 99 02:15 (114) 02/12/19 97.1 85 18 156/89 99 01:55 (111) Physical Exam Const: Well-developed, well-nourished Head: Atraumatic, normocephalic Eyes: Normal Conjunctiva, PERRLA, EOMI, normal sclera, no nystagmus ENT: Normal External Ears, Nose and Mouth, moist mucus membranes. Neck: Full range of motion. No meningismus, no lymphadenopathy. Resp: Clear to auscultation bilaterally, no wheezing, rhonchi, rales Cardio: Irregular rate and rhythm, no murmurs, S1 S2 present] Abd: Soft, non tender x 4, non distended. Normal bowel sounds, no guarding or rebound, no pulsitile abdominal masses or bruits Skin: No petechiae or rashes, no ecchymosis , no maculopapular rash Back: No midline or flank tenderness Ext: No cyanosis, or edema, FROM x 4, normal inspection, neurovascularly intact x 4 Neur: Awake and alert, STR 5/5 x 4, sensation intact x 4, no focal findings, cerebellum intact Psych: Normal Mood and Affect Result Diagram: 02/12/1923002/12/19 0231 Results 24 hrs Laboratory Tests Test 02/12/19 02:31 White Blood Count 5.1 10^3/ul Red Blood Count 4.42 10^6/ul Hemoglobin 13.9 g/dl Hematocrit 42.3 % Mean Corpuscular Volume 95.7 fl Mean Corpuscular Hemoglobin 31.4 pg Mean Corpuscular Hemoglobin Concent 32.9 g/dl Red Cell Distribution Width 12.8 % Platelet Count 263 10^3/UL Mean Platelet Volume 9.3 fl Immature Granulocytes % 0.200 % Neutrophils % 47.1 % Lymphocytes % 40.4 % Monocytes % 8.9 % Eosinophils % 3.2 % Basophils % 0.2 % Nucleated Red Blood Cells % 0.0 /100WBC Immature Granulocytes # 0.010 10^3/ul Neutrophils # 2.4 10^3/ul Lymphocytes # 2.1 10^3/ul Monocytes # 0.5 10^3/ul Eosinophils # 0.2 10^3/ul Basophils # 0.0 10^3/ul Nucleated Red Blood Cells # 0.0 10^3/ul Prothrombin Time 20.3 Sec Prothrombin Time Ratio 1.6 INR International Normalized Ratio 1.73 Activated Partial Thromboplast Time 41.9 Sec Sodium Level 144 mmol/L Potassium Level 4.1 mmol/L Chloride Level 107 mmol/L Carbon Dioxide Level 28 mmol/L Anion Gap 9 Blood Urea Nitrogen 19 mg/dl Creatinine 0.55 mg/dl Est Glomerular Filtrat Rate mL/min mL/min Glucose Level 127 mg/dl Calcium Level 9.9 mg/dl Total Bilirubin 0.5 mg/dl Direct Bilirubin 0.00 mg/dl Indirect Bilirubin 0.5 mg/dl Aspartate Amino Transf (AST/SGOT) 31 IU/L Alanine Aminotransferase (ALT/SGPT) 19 IU/L Alkaline Phosphatase 158 IU/L Troponin I 0.014 ng/ml Total Protein 8.4 g/dl Albumin 4.7 g/dl Globulin 3.70 g/dl Albumin/Globulin Ratio 1.27 Current Medications Medications Dose Sig/Yahaira Start Time Status Last (Trade) Ordered Route PRN Stop Time Admin Dose Reason Admin Aspirin 325 mg ONCE STAT 02/12/19 DC 02/12/19 (Aspirin) PO 02:11 02:23 02/12/19 02:14 Enoxaparin 70 mg ONCE STAT 02/12/19 DC 02/12/19 Sodium SC 02:11 02:24 (Lovenox) 02/12/19 02:14 Diltiazem 125 ml @ [id number] IV 02/12/19 02/12/19 HCl 10 mls/hr 02:30 02:42 Diltiazem 20 mg ONCE ONCE 02/12/19 DC 02/12/19 HCl IV 02:30 02:23 (Cardizem Iv) 02/12/19 02:31 Procedures/[place] [address] Radiology Main Line: [phone] DIAGNOSTIC IMAGING REPORT Patient: DENISE WEINBERG : 1945 Age: 73 Sex: F MR #: [id number] [facility]: [id number] DOS: 02/12/19 0211 Ordering MD: ROSARIO COSTA DO Location: E/R Room/Bed: PROCEDURE: XR Chest. CLINICAL INDICATION: Chest pain. TECHNIQUE: AP Portable chest. COMPARISON: CHEST 11/15/2018; CHEST 06/27/2018; FINDINGS: The cardiomediastinal silhouette is normal.The aortic arch is calcified. No focal consolidation, pleural effusion or pneumothorax is seen. There are degenerative changes in the spine. IMPRESSION: No radiographic evidence of acute cardiopulmonary disease. [facility] Physician Francisco Date Time Electronically viewed and signed by Masoud Potts Physician on 02/12/2019 04:13 CS/ CC: ROSARIO COSTA DO [id number] EKG: Rate/Rhythm: Atrial fibrillation with rapid ventricular response QRS, ST, QT: NORMAL [place], QRS, QT] Impression: A. fib with RVR Patient was given a Cardizem drip after Cardizem bolus, heart rate was brought down to the 90s in A. fib. We will admit for A. fib with RVR. Critical Care Time: 30 minutes Treatments/Evaluations: Close monitoring and treatment of unstable vital signs, cardiorespiratory, and neurologic status, while maintaining tight balance of fluid, respiratory, and cardiac interventions. This time includes discussing the case with the patient and the patient's family. This time does not include all procedures stated elsewhere in this record. This time also includes reviewing old records, labs and radiological studies. This time includes examining and re- examining the patient. Additionally, this time also includes arranging care with admitting and consulting physicians. Departure Diagnosis: Primary Impression: Atrial fibrillation with RVR Condition: Stable ROSARIO COSTA DO February 12, 2019 04:20
[2019-02-12] MEDS ORDERED: DOCUSATE SODIUM 100 MG CAP PO PRN (04:30)
[2019-02-12] MEDS ORDERED: NITROGLYCERIN (SL) 0.4 MG TAB SL PRN (04:30)
[2019-02-12] MEDS ORDERED: ONDANSETRON 4 MG INJ IV PRN (04:30)
[2019-02-12] MEDS ORDERED: BISACODYL 10 MG SUPP PR PRN (04:30)
[2019-02-12] MEDS ORDERED: NACL 0.9% 3 ML SYG IV SCH (04:30)
[2019-02-12] MEDS ORDERED: ACETAMINOPHEN 325 MG TAB PO PRN ×2 (04:30)
--- NOTE | 2019-02-12 07:24 | HP ---
Date/Time of Note Date/Time of Note DATE: 02/12/19 TIME: 07:20 Assessment/Plan VTE Prophylaxis Pharmacological prophylaxis: rivaroxaban Lines/Catheters IV [facility] Saline Lock Assessment/Plan Hospital Course This is a 73-year-old female being admitted to the telemetry floor for: #1 rapid A. fib with RVR: Received a Cardizem bolus followed by Cardizem drip and is currently running in the heart rates of 95-1 05. Will continue Cardizem drip. Patient did receive a dose of Lovenox in the emergency department. Will resume the patient Xarelto at night. Will check a echocardiogram. Will check TSH, magnesium and potassium were within acceptable values. Will consult cardiology . Patient does take p.o. Cardizem at home. #2 DVT GI prophylaxis: Lovenox/Xarelto, no GI prophylaxis indicated Further treatment strategy will be implemented as per the clinical course. Result Diagram: 02/12/19 0231 02/12/19 0231 Results 24hrs Laboratory Tests Test 02/12/19 02:31 02/12/19 05:41 White Blood Count 5.1 # Red Blood Count 4.42 Hemoglobin 13.9 Hematocrit 42.3 Mean Corpuscular Volume 95.7 Mean Corpuscular Hemoglobin 31.4 Mean Corpuscular Hemoglobin Concent 32.9 Red Cell Distribution Width 12.8 Platelet Count 263 # Mean Platelet Volume 9.3 Immature Granulocytes % 0.200 Neutrophils % 47.1 Lymphocytes % 40.4 Monocytes % 8.9 Eosinophils % 3.2 Basophils % 0.2 Nucleated Red Blood Cells % 0.0 Immature Granulocytes # 0.010 Neutrophils # 2.4 Lymphocytes # 2.1 Monocytes # 0.5 Eosinophils # 0.2 Basophils # 0.0 Nucleated Red Blood Cells # 0.0 Prothrombin Time 20.3 #H Prothrombin Time Ratio 1.6 INR International Normalized Ratio 1.73 Activated Partial Thromboplast Time 41.9 H Sodium Level 144 Potassium Level 4.1 Chloride Level 107 Carbon Dioxide Level 28 Anion Gap 9 Blood Urea Nitrogen 19 Creatinine 0.55 Est Glomerular Filtrat Rate mL/min Glucose Level 127 Calcium Level 9.9 Total Bilirubin 0.5 Direct Bilirubin 0.00 Indirect Bilirubin 0.5 Aspartate Amino Transf (AST/SGOT) 31 Alanine Aminotransferase (ALT/SGPT) 19 Alkaline Phosphatase 158 H Troponin I 0.014 Total Protein 8.4 H Albumin 4.7 Globulin 3.70 H Albumin/Globulin Ratio 1.27 Magnesium Level 2.3 Triglycerides Level 136 Cholesterol Level 206 H LDL Cholesterol, Calculated 101 HDL Cholesterol 78 Cholesterol/HDL Ratio 2.6 Thyroid Stimulating Hormone (TSH) Pending HPI/ROS Admit Date/Time Admit Date/Time Hx of Present Illness Chief complaint: Palpitations, dizziness This is a 73-year-old female with a past medical history of atrial fibrillation currently on Xarelto who reports that she was trying to sleep and when she turned during her sleep she started feeling palpitations. She stated that she got up and went to the bathroom and she felt dizzy. She felt heart fluttering. She waited for a while to see if she would get better but it did not improve. She also reported that her head started feeling heavy which is why she came to the emergency department. Denies any chest pain or shortness of breath or nausea or vomiting. She is currently taking Xarelto daily. She was given Cardizem bolus in the emergency department which did not result in improvement so she was started on a Cardizem drip. At the current time her heart rhythm is irregularly irregular ranging from 90s to 105. Allergies: Penicillin Medications: See MAR ROS Const: As per HPI Eyes : No pain discharge or redness or change in visual acuity ENT: No pain, sore throat, congestion, congestion, dysphagia or discharge Respiratory: No shortness of breath, cough, sputum, wheezing, or pleuritic pain Cardiovascular: As per HPI GI : no change in appetite, abdominal pain, nausea, vomiting, diarrhea, constipation, or change in the color his stool Genitourinary: No dysuria, hematuria, flank pain , discharge or CVA tenderness Musculoskeletal: No joint pain, back pain, neck pain, restricted range of motion in neck or joints Skin: No rash, bruising or hives Neuro: As per HPI Endocrine: No polyuria, polydipsia, temperature intolerance Psych: No hallucination, depression, anxiety or suicidal ideation PMH/Family/Social Past Medical History Atrial fibrillation Medications Current Medications Diltiazem HCl 125 ml @ 10 mls/hr [id number] IV Last administered on 02/12/19at 02:42; Admin Dose 10 MLS/HR; Start 02/12/19 at 02:30 Ondansetron HCl (Zofran Inj) 4 mg ER BRIDGE PRN IV NAUSEA/VOMITING; Start 02/12/19 at 04:30; Stop 02/13/19 at 04:29 Acetaminophen (Tylenol Tab) 650 mg ER BRIDGE PRN PO .MILD PAIN 1-3 OR TEMP; Start 02/12/19 at 04:30; Stop 02/13/19 at 04:29 IV Flush (NS 3 ml) 3 ml PER PROTOCOL IV ; Start 02/12/19 at 04:30 Nitroglycerin (Nitroglycerin (Sl Tab) 0.4 Mg) 1 tab Q5M PRN SL .CHEST PAIN; Start 02/12/19 at 04:30 Acetaminophen (Tylenol Tab) 650 mg Q6H PRN PO .PAIN 1-3 OR TEMP; Start 02/12/19 at 04:30 Docusate Sodium (Colace) 100 mg Q12H PRN PO .CONSTIPATION; Start 02/12/19 at 04:30 Bisacodyl (Dulcolax Supp) 10 mg DAILY PRN RI .CONSTIPATION; Start 02/12/19 at 04:30 Coded Allergies: Penicillins (Unverified Allergy, Unknown, 06/27/18) Past Surgical History x1 Family History Significant Family History: no pertinent family hx Social History Alcohol Use: none Smoking Status: Never smoker Drug Use: none Exam/Review of Systems Vital Signs Vitals Vital Signs Date Temp Pulse Resp B/P (MAP) Pulse Ox O2 O2 Flow FiO2 Time Delivery Rate 02/12/19 85 18 109/58 99 Room Air 07:19 (75) 02/12/19 97.1 02:15 Exam Exam General: Pleasant female currently lying in bed in no acute distress HEENT: Atraumatic, normocephalic. The pupils are equal, round and reactive. Extraocular motor are intact Neck: Supple with full range of motion. No rigidity or meningismus Chest: Nontender Lungs: Clear to auscultation bilaterally no crackles rales or wheezing Heart: Irregularly irregular, rapid Abdomen: Soft , nontender, nondistended , bowel sounds are present. No guarding no rebound tenderness , No masses or organomegaly. No costovertebral temporal angle mass Extremities: Normal to inspection, no edema no cyanosis Neurologic: Normal mental status, speech normal, cranial nerves II through XII are intact, motor and sensory are intact, no focal weakness Additional Comments EKG: Rate/Rhythm: Atrial fibrillation with rapid ventricular response QRS, ST, QT: NORMAL [place], QRS, QT] Impression: A. fib with RVR PROCEDURE: XR Chest. CLINICAL INDICATION: Chest pain. TECHNIQUE: AP Portable chest. COMPARISON: CHEST 11/15/2018; CHEST 06/27/2018; FINDINGS: The cardiomediastinal silhouette is normal.The aortic arch is calcified. No focal consolidation, pleural effusion or pneumothorax is seen. There are degenerative changes in the spine. IMPRESSION: No radiographic evidence of acute cardiopulmonary disease. [facility] Physician Francisco Date Time Electronically viewed and signed by Masoud Potts Physician on 02/12/2019 04:13 CS/ CC: ROSARIO COSTA DO [id number] JAYSON LAND February 12, 2019 07:24
[2019-02-12] MEDS ORDERED: RIVA20TA5 PO (07:27)
--- NOTE | 2019-02-12 11:47 | CONS ---
Assessment/Plan Assessment/Plan Hospital Course (Demo Recall) Assessment: Palpitations Paroxysmal atrial fibrillation - in atrial fibrillation with rapid ventricular response on presentation, now rate controlled Recommendations: Patient has been consistently on anticoagulation with Xarelto. Will attempt chemical cardioversion. -amiodarone 150mg IV x 1, and then drip per protocol -discontinue diltiazem drip -resume outpatient diltiazem 120mg daily -continue Xarelto 20mg daily -recent echocardiogram 11/15/2018 reported LVEF 50% without significant valve disease Consultation Date/Type/Reason Admit Date/Time Type of Consult Cardiology Reason for Consultation palpitations Date/Time of Note DATE: 02/12/19 TIME: 11:40 Hx of Present Illness The patient is a 73 year-old female with paroxysmal atrial fibrillation who had sudden onset of palpitations last night while sleeping. On presentation, she was noted to be in atrial fibrillation with rapid ventricular response. She has been started on a diltiazem drip and is now rate controlled. She takes Xarelto 20mg daily as an outpatient and has been on the medications consistently up until presentation. 14 point review of systems negative other than per HPI. Past Medical History Paroxysmal atrial fibrillation Home Meds Active Scripts Rivaroxaban* (Xarelto*) 20 Mg Tablet, 20 MG PO WITH DINNER for 30 Days, TAB Prov:JAYSON LAND 02/12/19 Reported Medications Hudson-3 Fatty Acids/Fish Oil ([place] 3 1,000 mg Softgel) 1 Each Capsule, 1 EACH PO, CAP 11/15/18 Cyanocobalamin* (Vitamin B12*) 100 Mcg Tab, 100 MCG PO DAILY, TAB 11/15/18 Ergocalciferol (Vitamin D2) (VITAMIN D2) 50,000 Unit Capsule, 60642 UNIT PO Q SUN, CAP 06/27/18 Diltiazem Hcl* (Cartia XT*) 120 Mg Cap.sr.24h, 120 MG PO DAILY, #30 CAP 03/20/17 Discontinued Reported Medications Ubidecarenone (COQ10) 50 Mg Tab.chew, 50 MG PO DAILY, TAB.CHEW 11/15/18 Clopidogrel Bisulfate (Clopidogrel) 75 Mg Tablet, 75 MG PO DAILY, #30 TAB 03/13/18 Medications Current Medications Diltiazem HCl 125 ml @ 10 mls/hr [id number] IV Last administered on 02/12/19at 02:42; Admin Dose 10 MLS/HR; Start 02/12/19 at 02:30 Ondansetron HCl (Zofran Inj) 4 mg ER BRIDGE PRN IV NAUSEA/VOMITING; Start 02/12/19 at 04:30; Stop 02/13/19 at 04:29 Acetaminophen (Tylenol Tab) 650 mg ER BRIDGE PRN PO .MILD PAIN 1-3 OR TEMP; Start 02/12/19 at 04:30; Stop 02/13/19 at 04:29 IV Flush (NS 3 ml) 3 ml PER PROTOCOL IV ; Start 02/12/19 at 04:30 Nitroglycerin (Nitroglycerin (Sl Tab) 0.4 Mg) 1 tab Q5M PRN SL .CHEST PAIN; Start 02/12/19 at 04:30 Acetaminophen (Tylenol Tab) 650 mg Q6H PRN PO .PAIN 1-3 OR TEMP; Start 02/12/19 at 04:30 Docusate Sodium (Colace) 100 mg Q12H PRN PO .CONSTIPATION; Start 02/12/19 at 04:30 Bisacodyl (Dulcolax Supp) 10 mg DAILY PRN [place] .CONSTIPATION; Start 02/12/19 at 04:30 Rivaroxaban (Xarelto) 20 mg WITH DINNER PO ; Start 02/12/19 at 18:00 Allergies: Coded Allergies: Penicillins (Unverified Allergy, Unknown, 06/27/18) Past Surgical History Past Surgical Hx: no surgical history Family History Significant Family History: no pertinent family hx Social History Alcohol Use: none Smoking Status: Never smoker Drug Use: none Exam/Review of Systems Vital Signs Vitals Vital Signs Date Temp Pulse Resp B/P (MAP) Pulse Ox O2 O2 Flow FiO2 Time Delivery Rate 02/12/19 98.3 82 18 115/79 96 Room Air 11:30 (91) Exam Constitutional: alert, well developed Psych: no complaints, nl mood/affect Head: normocephalic, atraumatic Eyes: nl conjunctiva, nl lids ENMT: nl external ears & nose, nl nasal mucosa & septum Neck: supple, non-tender Respiratory: clear to auscultation, normal air movement Cardiovascular: irregular rhythm Gastrointestinal: soft, non-tender Musculoskeletal: nl extremities to inspection Extremities: No cyanosis, No clubbing, No edema Neurological: nl mental status, nl speech Labs Result Diagram: 02/12/19 0231 02/12/19 0231 Results 24hrs Laboratory Tests Test 02/12/19 02:31 02/12/19 05:41 White Blood Count 5.1 # Red Blood Count 4.42 Hemoglobin 13.9 Hematocrit 42.3 Mean Corpuscular Volume 95.7 Mean Corpuscular Hemoglobin 31.4 Mean Corpuscular Hemoglobin Concent 32.9 Red Cell Distribution Width 12.8 Platelet Count 263 # Mean Platelet Volume 9.3 Immature Granulocytes % 0.200 Neutrophils % 47.1 Lymphocytes % 40.4 Monocytes % 8.9 Eosinophils % 3.2 Basophils % 0.2 Nucleated Red Blood Cells % 0.0 Immature Granulocytes # 0.010 Neutrophils # 2.4 Lymphocytes # 2.1 Monocytes # 0.5 Eosinophils # 0.2 Basophils # 0.0 Nucleated Red Blood Cells # 0.0 Prothrombin Time 20.3 #H Prothrombin Time Ratio 1.6 INR International Normalized Ratio 1.73 Activated Partial Thromboplast Time 41.9 H Sodium Level 144 Potassium Level 4.1 Chloride Level 107 Carbon Dioxide Level 28 Anion Gap 9 Blood Urea Nitrogen 19 Creatinine 0.55 Est Glomerular Filtrat Rate mL/min Glucose Level 127 Calcium Level 9.9 Total Bilirubin 0.5 Direct Bilirubin 0.00 Indirect Bilirubin 0.5 Aspartate Amino Transf (AST/SGOT) 31 Alanine Aminotransferase (ALT/SGPT) 19 Alkaline Phosphatase 158 H Troponin I 0.014 Total Protein 8.4 H Albumin 4.7 Globulin 3.70 H Albumin/Globulin Ratio 1.27 Hemoglobin A1c 5.4 Magnesium Level 2.3 Triglycerides Level 136 Cholesterol Level 206 H LDL Cholesterol, Calculated 101 HDL Cholesterol 78 Cholesterol/HDL Ratio 2.6 Thyroid Stimulating Hormone (TSH) 6.660 H Medications Medications Current Medications Diltiazem HCl 125 ml @ 10 mls/hr [id number] IV Last administered on 02/12/19at 02:42; Admin Dose 10 MLS/HR; Start 02/12/19 at 02:30 Ondansetron HCl (Zofran Inj) 4 mg ER BRIDGE PRN IV NAUSEA/VOMITING; Start 02/12/19 at 04:30; Stop 02/13/19 at 04:29 Acetaminophen (Tylenol Tab) 650 mg ER BRIDGE PRN PO .MILD PAIN 1-3 OR TEMP; Start 02/12/19 at 04:30; Stop 02/13/19 at 04:29 IV Flush (NS 3 ml) 3 ml PER PROTOCOL IV ; Start 02/12/19 at 04:30 Nitroglycerin (Nitroglycerin (Sl Tab) 0.4 Mg) 1 tab Q5M PRN SL .CHEST PAIN; Start 02/12/19 at 04:30 Acetaminophen (Tylenol Tab) 650 mg Q6H PRN PO .PAIN 1-3 OR TEMP; Start 02/12/19 at 04:30 Docusate Sodium (Colace) 100 mg Q12H PRN PO .CONSTIPATION; Start 02/12/19 at 04:30 Bisacodyl (Dulcolax Supp) 10 mg DAILY PRN [place] .CONSTIPATION; Start 02/12/19 at 04:30 Rivaroxaban (Xarelto) 20 mg WITH DINNER PO ; Start 02/12/19 at 18:00 BLAKE CORONA MD February 12, 2019 11:47
[2019-02-12] MEDS ORDERED: AMIODARONE 150MG/D5W BOLUS 100 ML IV ONE (12:00)
--- NOTE | 2019-02-12 12:07 | QN ---
Documentation Comment 73-year-old female with a known history of atrial fibrillation on low-dose /diltiazem, presented to the emergency room with sudden onset of palpitation associated with dizziness, found to have A. fib RVR.. Appreciate cardiology recommendations. Plan is to start amiodarone drip. I also noted TSH above normal, will add T4 level to a.m. labs and will treat accordingly. She is also with dyslipidemia, will start statin. Patient with no chest pain reported, however we will rule out ACS with 3 sets of troponins. Monitor electrolyte level closely and keep potassium > 4.0, magnesium > 2. Follow cardiology recommendations. She with no chest pain, however we will obtain a 3 sets of cardiac markers. Patient was seen in collaboration with Dr. De La O. CHEPE PENDLETON NP February 12, 2019 12:07
--- NOTE | 2019-02-12 12:57 | RADRPT ---
Echocardiogram Report Patient Name: DENISE WEINBERGPatient ID: [id number] : 1945 (73y 6m)Study Date: 02/12/2019 8:04:17 AM Gender: FAccession #: [id number] Tech: [employer] [facility] Location: [facility] Ref.Physician: JAYSON LAND Height(Cm): BSA: Weight(Kg): Quality: AdequateOrder Physician: JAYSON LAND Account #: Procedures: Echocardiographic Report: Transthoracic echocardiogram with complete 2D, M-Mode, and doppler examination. Indications: Atrial Fibrillation with RVR. Measurements: 2D/M Mode Doppler Measurement Value Normal Range Measurement Value Normal Range LVIDd 2D 4.1 [ 3.8 - 5.2 ] cm AV Peak Karthik 1.8 [ 100.0 - 170.0 ] cm/sec LVIDs 2D 2.8 [ 2.2 - 3.5 ] cm AV Peak PG 12.0 [ 2.0 - 9.0 ] mmHg LVPWd 2D 0.9 [ 0.6 - 0.9 ] cm AI Peak PG 78.0 mmHg IVSd 2D 1.0 [ 0.6 - 0.9 ] cm AI Peak Karthik 4.4 cm/sec AoR Diam 2D 2.6 [ 2.3 - 3.1 ] cm AI PHT 608.0 msec EDV 2D 74.7 [ 46.0 - 106.0 ] ml LVOT Peak Karthik 1.2 [ 70.0 - 110.0 ] cm/sec ESV 2D 29.8 [ 14.0 - 42.0 ] ml LVOT Peak PG 6.0 [ 2.0 - 6.0 ] mmHg EF 2D 60.1 [ 54.0 - 74.0 ] percent TR Peak Karthik 2.3 [ 100.0 - 280.0 ] cm/sec LA Dimen 2D 3.4 [ 2.7 - 3.8 ] cm TR Peak PG 21.0 mmHg RVSP 29.0 [ 10.0 - 36.0 ] mmHg RA Pressure 8.0 mmHg Findings: Left Ventricle: Lower limits of normal systolic function. Normal left ventricular cavity size. Normal left ventricular wall thickness. Ejection fraction is visually estimated at 50 - 55 %. Tissue Doppler/Mitral Doppler indices are indeterminate in this study due to the presence of atrial fibrillation. Right Ventricle: Normal right ventricular size. Normal right ventricular systolic function. Left Atrium: There is moderate enlargement of left atrium. Right Atrium: There is moderate enlargement of right atrium. Mitral Valve: Normal appearance and function of the mitral valve with trace physiologic regurgitation. Aortic Valve: Aortic cusps appear mildly calcified. Mild to moderate aortic valve regurgitation. Tricuspid Valve: Normal appearance of the tricuspid valve. Estimated peak PA systolic pressure 29 mmHg. There is trace tricuspid regurgitation. Pulmonic Valve: Pulmonic valve not well visualized. Pericardium: Normal pericardium with no significant pericardial effusion. Aorta: Normal aortic root. IVC: Normal size and normal respiratory collapse consistent with normal right atrial pressure. Conclusions: Lower limits of normal systolic function. Normal left ventricular cavity size. Normal left ventricular wall thickness. Ejection fraction is visually estimated at 50 - 55 %. Tissue Doppler/Mitral Doppler indices are indeterminate in this study due to the presence of atrial fibrillation. There is moderate enlargement of left atrium. There is moderate enlargement of right atrium. Aortic cusps appear mildly calcified. Mild to moderate aortic valve regurgitation. Electronically Signed By: Hugh Zabala 2019-02-12 12:55:58 PDT
[2019-02-12] MEDS: AMIODARONE 900 MG in DEXTROSE 5% 482 ML IV SCH ×2 (13:35→20:00)
[2019-02-12] MEDS: RIVAROXABAN 20 MG TABLET PO SCH (18:57)
[2019-02-12] MEDS: ATORVASTATIN 40 MG TAB PO SCH (20:12)
[2019-02-13] VITALS (12 sets, daily range): BP systolic 110–139; BP diastolic 54–67; PULSE 55–77; RESP 18–20
--- NOTE | 2019-02-13 08:49 | CONS ---
Assessment/Plan Assessment/Plan Hospital Course (Demo Recall) Palpitations: due to afib, now resolved Paroxysmal atrial fibrillation -On Xarelto chronically.In atrial fibrillation with rapid ventricular response on presentation, now back in sinus after amiodarone drip -ok for d/c home today if remains in sinus or rate controlled afib. Follow up with Dr. Zabala or myself as outpt -stop amiodarone drip after 24hrs completed but if discharged prior to 2pm, ok to stop -would d/c with amiodarone 200mg PO BID x 1 month. Can be readdressed as outpt. Possibly ablation candidate -diltiazem 120mg daily -continue Xarelto 20mg daily Consultation Date/Type/Reason Admit Date/Time February 12, 2019 at 04:21 Initial Consult Date Type of Consult Cardiology Date/Time of Note DATE: 02/13/19 TIME: 08:46 24 HR Interval Summary Free Text/Dictation No events. Converted to sinus this am. No palpitations. No complaints. Exam/Review of Systems Vital Signs Vitals Vital Signs Date Temp Pulse Resp B/P (MAP) Pulse Ox O2 O2 Flow FiO2 Time Delivery Rate 02/13/19 98.6 66 18 114/61 96 Room Air 07:37 (78) Intake and Output 02/12/19 02/12/19 02/13/19 1414:59 22:59 06:59 IntakeIntake Total 100 ml 1015 ml 667 ml BalanceBalance 100 ml 1015 ml 667 ml Exam Constitutional: alert, oriented Psych: no complaints, nl mood/affect Head: normocephalic, atraumatic Neck: supple; No jvd Respiratory: clear to auscultation; No crackles/rales Cardiovascular: regular rate and rhythm, systolic murmur (2/6 TRINA); No edema Gastrointestinal: soft, non-tender Neurological: nl mental status, nl speech Labs Result Diagram: 02/12/19 0231 02/13/19 0451 Results 24hrs Laboratory Tests Test 02/12/19 12:30 02/12/19 17:40 02/13/19 04:51 Creatine Kinase 39 39 Creatine Kinase Index 1.1 1.3 Creatinine Kinase MB (Mass) 0.43 0.51 Troponin I < 0.012 < 0.012 Sodium Level 142 Potassium Level 3.9 Chloride Level 110 Carbon Dioxide Level 24 Anion Gap 8 Blood Urea Nitrogen 21 H Creatinine 0.65 Est Glomerular Filtrat Rate mL/min Glucose Level 101 Calcium Level 9.1 Magnesium Level 2.2 Medications Medications Current Medications IV Flush (NS 3 ml) 3 ml PER PROTOCOL IV ; Start 02/12/19 at 04:30 Nitroglycerin (Nitroglycerin (Sl Tab) 0.4 Mg) 1 tab Q5M PRN SL .CHEST PAIN; Start 02/12/19 at 04:30 Acetaminophen (Tylenol Tab) 650 mg Q6H PRN PO .PAIN 1-3 OR TEMP; Start 02/12/19 at 04:30 Docusate Sodium (Colace) 100 mg Q12H PRN PO .CONSTIPATION; Start 02/12/19 at 04:30 Bisacodyl (Dulcolax Supp) 10 mg DAILY PRN [place] .CONSTIPATION; Start 02/12/19 at 04:30 Rivaroxaban (Xarelto) 20 mg WITH DINNER PO Last administered on 02/12/19at 18:57; Admin Dose 20 MG; Start 02/12/19 at 18:00 Amiodarone HCl 900 mg/Dextrose 500 ml @ 0 mls/hr Q0M IV Last administered on 02/12/19at 20:00; Admin Dose 16.7 MLS/HR; Start 02/12/19 at 12:00; Stop 02/13/19 at 11:59 Diltiazem HCl (Cardizem Cd) 120 mg DAILY PO ; Start 02/13/19 at 09:00 Atorvastatin Calcium (Lipitor) 40 mg HS PO Last administered on 02/12/19at 20:12; Admin Dose 40 MG; Start 02/12/19 at 21:00 NEVAEH SAGASTUME February 13, 2019 08:49
--- NOTE | 2019-02-13 09:24 | PN ---
Date/Time of Note Date/Time of Note DATE: 02/13/19 TIME: 09:23 Assessment/Plan VTE Prophylaxis Risk score (from Ns)>0 risk: 2 SCD applied (from Ns): Yes Pharmacological prophylaxis: rivaroxaban Lines/Catheters IV [facility] Peripheral IV Urinary Cath still in place: No Assessment/Plan Hospital Course SUBJECTIVE: Lying in bed comfortably. No further palpitations reported. Monitor with normal sinus rhythm. OBJECTIVE: Vital signs-see below PHYSICAL EXAM: Constitutional: Adequately built,not in acute distress. HEENT: Head atraumatic and normocephalic. Eyes: Extraocular muscles intact. Anicteric sclerae. Pupils equal bilaterally, reactive to light. NECK: Supple without lymph node. CHEST: Clear and good breath sounds equally. No wheezing. No rhonchi. HEART: S1, S2. Regular rate and rhythm. ABDOMEN: Soft/non tender with no rebound tenderness. Bowel sounds were present. EXTREMITIES: No cyanosis, clubbing or edema. NEUROLOGIC: Alert and oriented x3. No focal deficit. No sensory deficit. PSYCHOSOCIAL: No signs of depression. INTEGUMENTARY: No open wounds. ASSESSMENT AND PLAN:73-year-old female with a known history of atrial fibrillation on low-dose/diltiazem, presented to the emergency room with sudden onset of palpitation associated with dizziness, found to have A. fib RVR.. A. fib with RVR -Converted to NSR -on amio gtt-needs to wean to pills this afternoon. -cont Xeralto/dilitiazem -f/u cards oupt-possible ablation candidtae -keep k>4.0,mag>2.0 subclinical hypothyroidism -For outpatient repeat labs in 4 weeks DVT prophylaxis: On Xarelto. Disposition: Monitor telemetry. Plan is wean to p.o. amiodarone this afternoon. If no further arrhythmia overnight, DC planning in a.m. with outpatient cardiology follow-up. PT EVAL Patient was seen in collaboration with Dr. Rivera. Result Diagram: 02/12/19 0231 02/13/19 0451 Results 24hrs Laboratory Tests Test 02/12/19 12:30 02/12/19 17:40 02/13/19 04:51 Creatine Kinase 39 39 Creatine Kinase Index 1.1 1.3 Creatinine Kinase MB (Mass) 0.43 0.51 Troponin I < 0.012 < 0.012 Sodium Level 142 Potassium Level 3.9 Chloride Level 110 Carbon Dioxide Level 24 Anion Gap 8 Blood Urea Nitrogen 21 H Creatinine 0.65 Est Glomerular Filtrat Rate mL/min Glucose Level 101 Calcium Level 9.1 Magnesium Level 2.2 Exam/Review of Systems Exam Vitals Vital Signs Date Temp Pulse Resp B/P (MAP) Pulse Ox O2 O2 Flow FiO2 Time Delivery Rate 02/13/19 71 08:01 02/13/19 98.6 18 114/61 96 Room Air 07:37 (78) Intake and Output 02/12/19 02/12/19 02/13/19 1515:00 23:00 07:00 IntakeIntake Total 100 ml 1015 ml 667 ml BalanceBalance 100 ml 1015 ml 667 ml Results Results 24hrs Laboratory Tests Test 02/12/19 12:30 02/12/19 17:40 02/13/19 04:51 Creatine Kinase 39 39 Creatine Kinase Index 1.1 1.3 Creatinine Kinase MB (Mass) 0.43 0.51 Troponin I < 0.012 < 0.012 Sodium Level 142 Potassium Level 3.9 Chloride Level 110 Carbon Dioxide Level 24 Anion Gap 8 Blood Urea Nitrogen 21 H Creatinine 0.65 Est Glomerular Filtrat Rate mL/min Glucose Level 101 Calcium Level 9.1 Magnesium Level 2.2 Medications Medication Current Medications IV Flush (NS 3 ml) 3 ml PER PROTOCOL IV ; Start 02/12/19 at 04:30 Nitroglycerin (Nitroglycerin (Sl Tab) 0.4 Mg) 1 tab Q5M PRN [place] .CHEST PAIN; Start 02/12/19 at 04:30 Acetaminophen (Tylenol Tab) 650 mg Q6H PRN PO .PAIN 1-3 OR TEMP; Start 02/12/19 at 04:30 Docusate Sodium (Colace) 100 mg Q12H PRN PO .CONSTIPATION; Start 02/12/19 at 04:30 Bisacodyl (Dulcolax Supp) 10 mg DAILY PRN [place] .CONSTIPATION; Start 02/12/19 at 04:30 Rivaroxaban (Xarelto) 20 mg WITH DINNER PO Last administered on 02/12/19at 18:57; Admin Dose 20 MG; Start 02/12/19 at 18:00 Amiodarone HCl 900 mg/Dextrose 500 ml @ 0 mls/hr Q0M IV Last administered on at 20:00; Admin Dose 16.7 MLS/HR; Start 02/12/19 at 12:00; Stop 02/13/19 at 11:59 Diltiazem HCl (Cardizem Cd) 120 mg DAILY PO ; Start 02/13/19 at 09:00 Atorvastatin Calcium (Lipitor) 40 mg HS PO Last administered on 02/12/19at 20:12; Admin Dose 40 MG; Start 02/12/19 at 21:00 Amiodarone HCl (Cordarone) 200 mg BID PO ; Start 02/13/19 at 21:00 CHEPE PENDLETON NP February 13, 2019 09:24
[2019-02-13] MEDS: DILTIAZEM (CD) 120 MG CAP PO SCH (10:24)
[2019-02-13] MEDS ORDERED: AMIODARONE 200 MG TAB ONE (15:10)
[2019-02-13] MEDS: RIVAROXABAN 20 MG TABLET PO SCH (17:45)
[2019-02-13] MEDS ORDERED: AMIODARONE 200 MG TAB PO SCH (21:00)
[2019-02-13] MEDS: ATORVASTATIN 40 MG TAB PO SCH (21:35)
[2019-02-14] VITALS (8 sets, daily range): BP systolic 117–161; BP diastolic 58–71; PULSE 54–75; RESP 18–20
[2019-02-14] MEDS ORDERED: AMIODARONE 200 MG TAB PO SCH (06:00)
[2019-02-14] MEDS: DILTIAZEM (CD) 120 MG CAP PO SCH (08:45)
--- NOTE | 2019-02-14 12:51 | PDOCDIS ---
Discharge Instructions CONDITION [id number] Patient Condition: [id number] Stable HOME CARE INSTRUCTIONS: [id number] Diet Instructions: [id number] Low Fat /Cholesterol FOLLOW UP/APPOINTMENTS Follow-up Plan Follow-up with primary care physician in 1 week-you need to repeat blood test for TSH,T4 in 4 weeks Follow-up with engine house helper IN 2WEEKS Name, Degree Barron Steen MD Specialty Interventional Cardiology Comments Office Address [address] [place] [address]. [address] [place] [address] Office CHEPE PENDLETON NP February 14, 2019 12:51
[2019-02-14] MEDS ORDERED: AMIO200T4 PO (12:52)
[2019-02-14] MEDS ORDERED: ATOR40TA68 PO (12:52)
--- NOTE | 2019-02-14 12:57 | DS ---
Date/Time of Note Date/Time of Note DATE: 02/14/19 TIME: 12:55 Discharge Summary Admission/Discharge Info Admit Date/Time February 12, 2019 at 04:21 Discharge Date/Time Discharge Diagnosis A. fib with RVR -Converted to NSR subclinical hypothyroidism Dyslipidemia Patient Condition: Stable Consults ,sue Procedures 02/12/2019: 2D echocardiogram Conclusions: Lower limits of normal systolic function. Normal left ventricular cavity size. Normal left ventricular wall thickness. Ejection fraction is visually estimated at 50 - 55 %. Tissue Doppler/Mitral Doppler indices are indeterminate in this study due to the presence of atrial fibrillation. There is moderate enlargement of left atrium. There is moderate enlargement of right atrium. Aortic cusps appear mildly calcified. Mild to moderate aortic valve regurgitation. Electronically Signed By: Hugh Zabala 2019-02-12 12:55:58 PDT Hospital Course 73-year-old female with a known history of atrial fibrillation on low- dose/diltiazem, presented to the emergency room with sudden onset of palpitation associated with dizziness, found to have A. fib RVR.. Patient was seen by cardiology. Patient was started on amiodarone drip. She converted to normal sinus rhythm with no further symptoms. Patient was then transitioned to oral amiodarone which she was able to tolerate. She was continued on Xarelto and Cardizem. Patient was also noted with subclinical hypothyroidism for which she was recommended to follow-up with her primary care physician for repeat blood test in 4 weeks which she verbalized understanding. At this time, patient is cleared from cardiology standpoint for discharge with outpatient cardiology follow-up. If her symptoms return, cardiology recommended possible candidate for ablation as outpatient. Approximately 60 m spent on coordinating the discharge on this patient. Patient was seen in collaboration with Dr. Rivera. Home Meds Active Scripts Atorvastatin* (Atorvastatin*) 40 Mg Tablet, 40 MG PO HS, #30 TAB Prov:PENDLETON,CHEPE V. SOFTWARE PUBLISHER 02/14/19 Amiodarone Hcl* (Amiodarone Hcl*) 200 Mg Tablet, 200 MG PO 0600,1800, #60 TAB Prov:PENDLETON,CHEPE V. SOFTWARE PUBLISHER 02/14/19 Rivaroxaban* (Xarelto*) 20 Mg Tablet, 20 MG PO WITH DINNER for 30 Days, TAB Prov:JAYSON LAND 02/12/19 Reported Medications [place]-3 Fatty Acids/Fish Oil ([place] 3 1,000 mg Softgel) 1 Each Capsule, 1 EACH PO, CAP 11/15/18 Cyanocobalamin* (Vitamin B12*) 100 Mcg Tab, 100 MCG PO DAILY, TAB 11/15/18 Ergocalciferol (Vitamin D2) (VITAMIN D2) 50,000 Unit Capsule, 67782 UNIT PO Q SUN, CAP 06/27/18 Diltiazem Hcl* (Cartia XT*) 120 Mg Cap.sr.24h, 120 MG PO DAILY, #30 CAP 03/20/17 Discontinued Reported Medications Ubidecarenone (COQ10) 50 Mg Tab.chew, 50 MG PO DAILY, TAB.CHEW 11/15/18 Clopidogrel Bisulfate (Clopidogrel) 75 Mg Tablet, 75 MG PO DAILY, #30 TAB 03/13/18 Follow-up Plan Follow-up with primary care physician in 1 week-you need to repeat blood test for TSH,T4 in 4 weeks Follow-up with can sealer IN 2WEEKS Name, Degree Barron Steen MD Specialty Interventional Cardiology Comments Office Address [address] [place] [address]. [address] [place] [address] Office Primary Care Provider [facility] Pending Labs Laboratory Tests Test 02/14/19 04:55 Sodium Level 142 mmol/L (135-144) Potassium Level 4.0 mmol/L (3.5-5.1) Chloride Level 109 mmol/L (97-110) Carbon Dioxide Level 27 mmol/L (21-31) Anion Gap 6 (5-13) Blood Urea Nitrogen 16 mg/dl (7-20) Creatinine 0.66 mg/dl (0.44-1.00) Est Glomerular Filtrat Rate mL/min mL/min (>60) Glucose Level 98 mg/dl (70-220) Calcium Level 9.2 mg/dl (8.4-10.2) Magnesium Level 2.1 mg/dl (1.7-2.5) CHEPE PENDLETON NP February 14, 2019 12:57
--- NOTE | 2019-02-14 15:59 | CONS ---
Assessment/Plan Assessment/Plan Hospital Course (Demo Recall) Palpitations: due to afib, now resolved Paroxysmal atrial fibrillation -On Xarelto chronically.In atrial fibrillation with rapid ventricular response on presentation, now back in sinus after amiodarone drip -ok for d/c home.Follow up with Dr. Zabala or myself as outpt -d/c with amiodarone 200mg PO BID x 1 month. Can be readdressed as outpt. Possibly ablation candidate -diltiazem 120mg daily -continue Xarelto 20mg daily Consultation Date/Type/Reason Admit Date/Time February 12, 2019 at 04:21 Initial Consult Date Type of Consult Cardiology Date/Time of Note DATE: 02/14/19 TIME: 15:58 24 HR Interval Summary Free Text/Dictation No events. Remains in sinus. Family at bedside. No complaints Exam/Review of Systems Vital Signs Vitals Vital Signs Date Temp Pulse Resp B/P (MAP) Pulse Ox O2 O2 Flow FiO2 Time Delivery Rate 02/14/19 98.0 68 18 150/69 97 Room Air 14:30 (96) Intake and Output 02/13/19 02/13/19 02/14/19 1515:00 23:00 07:00 IntakeIntake Total 750 ml BalanceBalance 750 ml Exam Constitutional: alert, oriented Psych: no complaints, nl mood/affect Head: normocephalic, atraumatic Neck: supple; No jvd Respiratory: clear to auscultation; No crackles/rales Cardiovascular: regular rate and rhythm; No edema Gastrointestinal: soft, non-tender; No distended Neurological: nl mental status, nl speech Labs Result Diagram: 02/12/19 0231 02/14/19 0455 Results 24hrs Laboratory Tests Test 02/14/19 04:55 Sodium Level 142 Potassium Level 4.0 Chloride Level 109 Carbon Dioxide Level 27 Anion Gap 6 Blood Urea Nitrogen 16 Creatinine 0.66 Est Glomerular Filtrat Rate mL/min Glucose Level 98 Calcium Level 9.2 Magnesium Level 2.1 Medications Medications Current Medications IV Flush (NS 3 ml) 3 ml PER PROTOCOL IV ; Start 02/12/19 at 04:30 Nitroglycerin (Nitroglycerin (Sl Tab) 0.4 Mg) 1 tab Q5M PRN SL .CHEST PAIN; Start 02/12/19 at 04:30 Acetaminophen (Tylenol Tab) 650 mg Q6H PRN PO .PAIN 1-3 OR TEMP; Start 02/12/19 at 04:30 Docusate Sodium (Colace) 100 mg Q12H PRN PO .CONSTIPATION; Start 02/12/19 at 04:30 Bisacodyl (Dulcolax Supp) 10 mg DAILY PRN NV .CONSTIPATION; Start 02/12/19 at 04:30 Rivaroxaban (Xarelto) 20 mg WITH DINNER PO Last administered on 02/13/19at 17:45; Admin Dose 20 MG; Start 02/12/19 at 18:00 Diltiazem HCl (Cardizem Cd) 120 mg DAILY PO Last administered on 02/14/19at 08:45; Admin Dose 120 MG; Start 02/13/19 at 09:00 Atorvastatin Calcium (Lipitor) 40 mg HS PO Last administered on 02/13/19at 21:35; Admin Dose 40 MG; Start 02/12/19 at 21:00 Amiodarone HCl (Cordarone) 200 mg 0600,1800 PO Last administered on 02/14/19at 06:11; Admin Dose 200 MG; Start 02/14/19 at 06:00 NEVAEH SAGASTUME February 14, 2019 15:59
== END 2019-02-14 16:00 | disposition home or self-care (01) | DRG 310 ==
LOC: E/R 01:48 → 6WM 04:21
PROVIDERS: ADMIT Family Medicine; ATTEND Family Medicine
DX: I48.0 Paroxysmal atrial fibrillation (principal); E03.9 Hypothyroidism, unspecified; I10 Essential (primary) hypertension; E78.5 Hyperlipidemia, unspecified; Z88.0 Allergy status to penicillin; Z79.01 Long term (current) use of anticoagulants
CPT/HCPCS: 36415; 71045; 80048; 80053; 80061; 82550; 82553; 83036; 83735; 84439; 84443; 84484; 85025; 85610; 85730; 93005; 93306; 96372; 96374; 96375; 97161; J0282; J7060